=== PATIENT | female | born 1995 | race Two or more races ===

== ENCOUNTER → 2016-12-08 | Outpatient (REF) | payer OTHER ==
[2016-12-08 18:09] LABS: ALBUMIN/GLOBULIN RATIO 1.14 (1.00-1.93); ALKALINE PHOSPHATASE 85 U/L (45-117); ALT/SGPT 46 U/L (12-78); ANION GAP 8 MEQ/L (8-16); AST/SGOT 25 U/L (15-37); BILIRUBIN,TOTAL 0.3 MG/DL (0.2-1.0); BLOOD UREA NITROGEN 10 MG/DL (7-18); CALCIUM LEVEL 9.1 MG/DL (8.5-10.1); CARBON DIOXIDE LEVEL 28 MEQ/L (21-32); CHLORIDE LEVEL 105 MEQ/L (98-107); CHOLESTEROL LEVEL 197 MG/DL (<200); CREATININE FOR GFR 0.75 MG/DL (0.55-1.02); FREE T4 1.06 NG/DL (0.76-1.46); GLOMERULAR FILTRATION RATE > 60.0 (>60); GLUCOSE, FASTING 83 MG/DL (70-105); POTASSIUM SERUM 4.1 MEQ/L (3.5-5.1); SODIUM LEVEL 141 MEQ/L (136-145); TOTAL PROTEIN 7.5 GM/DL (6.4-8.2); TRIGLYCERIDES LEVEL 186 MG/DL (<150)
[2016-12-08 18:23] LABS: MEAN CORPUSCULAR HEMOGLOBIN 30.3 pg (27.0-33.0); MEAN CORPUSCULAR HGB CONC 33.9 g/dl (32.0-36.5); MEAN CORPUSCULAR VOLUME 89.2 fl (80.0-96.0); RED CELL DISTRIBUTION WIDTH 11.9 % (11.5-14.5); WHITE BLOOD COUNT 5.4 K/mm3 (4.0-10.0)
== END ==
LOC: M SFHCLERA 14:47
PROVIDERS: ATTEND Family Medicine
DX: N92.6 Irregular menstruation, unspecified (principal); N83.201 Unspecified ovarian cyst, right side

== ENCOUNTER → 2016-12-13 | Outpatient (CLI) | payer OTHER ==
--- NOTE | 2016-12-13 16:09 | REP ---
PELVIC ULTRASOUND: Real-time sonographic evaluation of the pelvis was performed utilizing transabdominal and endovaginal technique. The bladder measures 6.9 x 4.4 x 7.4 cm. The uterus measures 7.6 x 4.1 x 4.6 cm. Endometrial thickness is 9 mm. There is no endometrial fluid collection. Right ovary measures 4.8 x 2.3 x 2.8 cm and left ovary 3.9 x 1.9 x 2.1 cm. Multiple subcentimeter follicles are seen in each ovary. There is no other evidence of adnexal mass or free fluid. There is blood flow each in each ovary with duplex Doppler evaluation, with no torsion. IMPRESSION: Multiple subcentimeter follicles in each ovary. No adnexal mass. No free fluid. Signed by Shawn Lemus MD 12/13/2016 04:20 P
== END ==
LOC: M LRY 12:59
PROVIDERS: ATTEND Family Medicine
DX: N83.01 Follicular cyst of right ovary (principal); N83.02 Follicular cyst of left ovary

== ENCOUNTER 2017-02-09 12:47 | Emergency (ER) | payer OTHER ==
[~2017-02-09] VITALS: Ht 152.4 cm; Wt 66.2 kg
[2017-02-09] MEDS ORDERED: MONOTAB PO (12:52)
[2017-02-09] MEDS ORDERED: PANTOPRAZOLE 40MG INJ (PROTONIX) (C9113) IV ONE (13:15)
[2017-02-09 13:34] LABS: BASO % 0.2 % (0.0-1.0); EOS # 0.1 K/mm3 (0.0-0.50); EOS % 1.3 % (0.0-3.0); LARGE UNSTAINED CELL # 0.1 K/mm3 (0.0-0.4); LYMPH # 1.9 K/mm3 (1.5-6.5); LYMPH % 23.7 % (24.0-44.0); MEAN CORPUSCULAR HEMOGLOBIN 30.9 pg (27.0-33.0); MEAN CORPUSCULAR HGB CONC 34.4 g/dl (32.0-36.5); MEAN CORPUSCULAR VOLUME 89.8 fl (80.0-96.0); MONO # 0.4 K/mm3 (0.0-0.8); MONO % 5.5 % (0.0-5.0); NEUTROPHILS # 5.3 K/mm3 (1.8-7.7); NEUTROPHILS % 68.2 % (36.0-66.0); PLATELET COUNT, AUTOMATED 250 k/mm3 (150-450); WHITE BLOOD COUNT 7.8 K/mm3 (4.0-10.0)
[2017-02-09 13:40] LABS: CONTROL LINE UCG INT CTR LINE PRESENT
[2017-02-09] MEDS ORDERED: GASTROGRAFIN SOLUTION 30ML (Q9963) PO ONE ×2 (13:45)
[2017-02-09 13:54] LABS: ALBUMIN 3.7 GM/DL (3.2-5.2); ALBUMIN/GLOBULIN RATIO 0.95 (1.00-1.93); ALKALINE PHOSPHATASE 61 U/L (45-117); ALT/SGPT 23 U/L (12-78); ANION GAP 7 MEQ/L (8-16); AST/SGOT 15 U/L (15-37); BILIRUBIN,DIRECT < 0.1 MG/DL (0.0-0.2); BILIRUBIN,TOTAL 0.3 MG/DL (0.2-1.0); BLOOD UREA NITROGEN 6 MG/DL (7-18); CARBON DIOXIDE LEVEL 27 MEQ/L (21-32); CHLORIDE LEVEL 107 MEQ/L (98-107); CREATININE FOR GFR 0.74 MG/DL (0.55-1.02); GLOMERULAR FILTRATION RATE > 60.0 (>60); GLUCOSE, FASTING 86 MG/DL (70-105); POTASSIUM SERUM 3.8 MEQ/L (3.5-5.1); SODIUM LEVEL 141 MEQ/L (136-145); TOTAL PROTEIN 7.6 GM/DL (6.4-8.2)
[2017-02-09] MEDS ORDERED: BACTRIM 160MG/800MG DS TAB PO ONE (14:15)
[2017-02-09] MEDS ORDERED: BACT800T5 PO (14:46)
[2017-02-09] MEDS ORDERED: PROTPAK PO (14:47)
[2017-02-09] MEDS ORDERED: ISOVUE-370 76% 100ML VIAL (Q9967) As Ordered ONE (15:02)
--- NOTE | 2017-02-09 16:09 | REP ---
CT ABDOMEN AND PELVIS WITH IV CONTRAST: TECHNIQUE: Axial contrast enhanced images from the lung bases to the pubic symphysis using 100 mL Isovue 370 intravenous contrast material with multiplanar reformations. Visualized lung bases are clear. The liver demonstrates a tiny subcentimeter cyst in the right lobe. There is a small hiatal hernia. Spleen, adrenals, pancreas and kidneys are normal. There is no hydronephrosis. There is no abdominal aortic aneurysm. There is no adenopathy, free air or free fluid. The appendix is normal. There is no bowel wall thickening. No pelvic mass is seen. The urinary bladder appears unremarkable. IMPRESSION: No evidence of appendicitis. Small hiatal hernia. No free air or free fluid. Signed by Shawn Lemus MD 02/09/2017 04:49 P
[2017-02-09 16:10] VITALS: BP 111/67
== END 2017-02-09 16:11 | disposition home or self-care (01) ==
LOC: M ED 14:05
DX: K44.9 Diaphragmatic hernia without obstruction or gangrene (principal); K21.9 Gastro-esophageal reflux disease without esophagitis; N39.0 Urinary tract infection, site not specified; Z79.3 Long term (current) use of hormonal contraceptives
CPT/HCPCS: 36415; 74177; 80048; 80076; 81001; 83690; 84703; 85025; 87086; 96374; 99283; C9113; Q9963; Q9967

== ENCOUNTER → 2017-02-21 | Outpatient (REF) | payer OTHER ==
[~2017-02-21] MED LIST: BACT800T5 PO; MONOTAB PO; PROTPAK PO
== END ==
LOC: M SFHCLERA 14:10
PROVIDERS: ATTEND Family Medicine
DX: R30.0 Dysuria (principal)

== ENCOUNTER → 2017-04-26 | Outpatient (CLI) | payer OTHER ==
--- NOTE | 2017-04-26 20:12 | REP ---
Right shoulder series: Three views: History: Acute pain right shoulder. Findings: The right glenohumeral and acromioclavicular joints are normally aligned. No fracture or subluxation is seen. Periarticular soft tissues are unremarkable. No right rib or pulmonary abnormality is seen. Impression: Negative right shoulder views. Signed by Felipe Rai MD 04/27/2017 07:53 A
== END ==
LOC: M LRY 18:26
PROVIDERS: ATTEND Nurse Practitioner Family
DX: M25.511 Pain in right shoulder (principal)

== ENCOUNTER → 2017-08-24 | Outpatient (REF) | payer OTHER ==
[~2017-08-24] MED LIST changes: +FLON1SPR; +GUAI100S7 PO; +MACR100C43 PO
== END ==
LOC: M SFHCLERA 13:01
PROVIDERS: ATTEND Physician Assistant
DX: J02.9 Acute pharyngitis, unspecified (principal); R50.9 Fever, unspecified

== ENCOUNTER 2017-08-30 06:11 | Emergency (ER) | payer OTHER ==
[~2017-08-30] VITALS: Ht 149.9 cm; Wt 59.1 kg
[~2017-08-30 06:11] MED LIST changes: -FLON1SPR; -GUAI100S7 PO; -MACR100C43 PO
[2017-08-30] MEDS ORDERED: guaiFENesin SYRUP 200 MG/10 ML UDC PO ONE (06:45)
[2017-08-30 07:07] LABS: BASO % 0.3 % (0.0-1.0); EOS # 0.2 10^3/uL (0.0-0.50); IMMATURE GRANULOCYTE % 0.2 % (0-0); LYMPH # 2.1 10^3/uL (1.5-6.5); LYMPH % 24.1 % (24.0-44.0); MEAN CORPUSCULAR HEMOGLOBIN 29.9 pg (27.0-33.0); MEAN CORPUSCULAR HGB CONC 34.2 g/dl (32.0-36.5); MEAN CORPUSCULAR VOLUME 87.3 fl (80.0-96.0); MONO # 0.9 10^3/uL (0.0-0.8); MONO % 10.4 % (0.0-5.0); NEUTROPHILS # 5.6 10^3/uL (1.8-7.7); PLATELET COUNT, AUTOMATED 271 10^3/uL (150-450); RED CELL DISTRIBUTION WIDTH 11.9 % (11.5-14.5); WHITE BLOOD COUNT 8.9 10^3/uL (4.0-10.0)
[2017-08-30 07:37] LABS: ANION GAP 8 MEQ/L (8-16); BLOOD UREA NITROGEN 8 MG/DL (7-18); CALCIUM LEVEL 8.9 MG/DL (8.5-10.1); CARBON DIOXIDE LEVEL 24 MEQ/L (21-32); CHLORIDE LEVEL 106 MEQ/L (98-107); CREATININE FOR GFR 0.51 MG/DL (0.55-1.02); GLOMERULAR FILTRATION RATE > 60.0 (>60); GLUCOSE, FASTING 82 MG/DL (70-105); HCG, SERUM QUANTITATIVE 18488 MIU/ML; SODIUM LEVEL 138 MEQ/L (136-145)
--- NOTE | 2017-08-30 08:37 | REP ---
Clinical: Vaginal bleeding for dating and viability. Technique: First trimester transabdominal and transvaginal ultrasound examination with color Doppler evaluation. Findings: Anteverted uterus measures 8.6 x 5.7 x 6.7 cm. Endometrial complex demonstrates decidual reaction 229.5 mm and includes an irregular gestational sac with yolk sac but no pole. Mean sac diameter of 11.3 mm corresponds to 5 weeks 6 days gestational age. Maternal ovaries are normal in appearance and vascularity without evidence for torsion. Right ovary measures 4.8 x 2.8 x 3.1 cm and includes 2.2 cm corpus luteal cyst; RI 0.58. Left ovary measures 4.0 x 2.0 x 2.3 cm; RI 0.71. Small amount of pelvic free fluid is nonspecific. Impression: Gestational sac with yolk sac but no pole. Differential diagnosis includes normal early and early spontaneous . Less likely, ectopic cannot be excluded. Correlation with serial HCG levels and repeat ultrasound as necessary. Signed by Lauro Us MD 08/30/2017 08:29 A
[2017-08-30] MEDS ORDERED: FLON1SPR (08:56)
[2017-08-30] MEDS ORDERED: GUAI100S7 PO (08:56)
[2017-08-30] MEDS ORDERED: MACR100C43 PO (08:56)
[2017-08-30 09:08] VITALS: BP 131/78
== END 2017-08-30 09:10 | disposition home or self-care (01) ==
LOC: M ED 06:11
DX: O23.41 Unspecified infection of urinary tract in pregnancy, first trimester (principal); O99.511 Diseases of the respiratory system complicating pregnancy, first trimester; R05 Cough; Z3A.01 Less than 8 weeks gestation of pregnancy; Z87.891 Personal history of nicotine dependence

== ENCOUNTER 2017-09-02 22:36 | Emergency (ER) | payer OTHER ==
[~2017-09-02] VITALS: Ht 149.9 cm; Wt 59.1 kg
[~2017-09-02 22:36] MED LIST changes: +FLON1SPR; +GUAI100S7 PO; +MACR100C43 PO
[2017-09-02] MEDS ORDERED: diphenhydrAMINE INJ 50MG/ML VIAL (J1200) IV ONE (23:45)
[2017-09-02] MEDS ORDERED: NS 1,000 ML IV ONE (23:45)
[2017-09-02] MEDS ORDERED: METOCLOPRAMIDE INJ 10MG/2ML VIAL (J2765) IV ONE (23:45)
[2017-09-02 23:57] LABS: BASO % 0.3 % (0.0-1.0); EOS # 0.1 10^3/uL (0.0-0.50); EOS % 1.2 % (0.0-3.0); IMMATURE GRANULOCYTE % 0.3 % (0-0); LYMPH # 2.9 10^3/uL (1.5-6.5); LYMPH % 24.8 % (24.0-44.0); MEAN CORPUSCULAR HEMOGLOBIN 30.4 pg (27.0-33.0); MEAN CORPUSCULAR HGB CONC 34.2 g/dl (32.0-36.5); MEAN CORPUSCULAR VOLUME 88.9 fl (80.0-96.0); MONO # 1.1 10^3/uL (0.0-0.8); MONO % 9.3 % (0.0-5.0); NEUTROPHILS # 7.6 10^3/uL (1.8-7.7); NEUTROPHILS % 64.1 % (36.0-66.0); PLATELET COUNT, AUTOMATED 286 10^3/uL (150-450); RED CELL DISTRIBUTION WIDTH 11.9 % (11.5-14.5); WHITE BLOOD COUNT 11.9 10^3/uL (4.0-10.0)
[2017-09-03 00:33] LABS: ALBUMIN 3.7 GM/DL (3.2-5.2); ALBUMIN/GLOBULIN RATIO 1.06 (1.00-1.93); ALKALINE PHOSPHATASE 72 U/L (45-117); ALT/SGPT 20 U/L (12-78); ANION GAP 7 MEQ/L (8-16); AST/SGOT 12 U/L (7-37); BILIRUBIN,TOTAL 0.3 MG/DL (0.2-1.0); BLOOD UREA NITROGEN 5 MG/DL (7-18); CALCIUM LEVEL 8.8 MG/DL (8.5-10.1); CARBON DIOXIDE LEVEL 27 MEQ/L (21-32); CHLORIDE LEVEL 103 MEQ/L (98-107); CREATININE FOR GFR 0.54 MG/DL (0.55-1.02); GLOMERULAR FILTRATION RATE > 60.0 (>60); GLUCOSE, FASTING 81 MG/DL (70-105); HCG, SERUM QUANTITATIVE 45755 MIU/ML; POTASSIUM SERUM 3.3 MEQ/L (3.5-5.1); SODIUM LEVEL 137 MEQ/L (136-145); TOTAL PROTEIN 7.2 GM/DL (6.4-8.2)
[2017-09-03] MEDS ORDERED: KEFL500C17 PO (01:41)
--- NOTE | 2017-09-03 02:00 | REPUSA ---
CLINICAL HISTORY: determination. TECHNIQUE: Real-time ultrasound of the pelvis wasperformed. FINDINGS: The uterus measures 9.1x5.3x6.9 cm. The pole measures 2.9 mm. This corresponds to an estimated gestation age of 5 weeks and 6 days. No cardiac activity is noted. Right ovarian echogenic hemorrhagic cyst measuring 2.1 cm. Unremarkable left ovary. No free fluid in the pelvic cul-de-sac. IMPRESSION: Single intrauterine pole. No cardiac activity is identified. Right ovarian hemorrhagic cyst.
[2017-09-03 02:14] VITALS: BP 98/51
== END 2017-09-03 02:15 | disposition home or self-care (01) ==
LOC: M ED 22:36
DX: O23.41 Unspecified infection of urinary tract in pregnancy, first trimester (principal); Z87.891 Personal history of nicotine dependence; O34.81 Maternal care for other abnormalities of pelvic organs, first trimester; Z3A.01 Less than 8 weeks gestation of pregnancy
CPT/HCPCS: 76801; 76817; 80053; 81001; 84702; 85025; 93976; 96361; 96374; 96375; 99284; J1200; J2765

== ENCOUNTER → 2017-09-06 | Outpatient (REF) | payer OTHER ==
[~2017-09-06] MED LIST changes: +KEFL500C17 PO
== END ==
LOC: M SFHCLERA 14:31
PROVIDERS: ATTEND Family Medicine
DX: O03.9 Complete or unspecified spontaneous abortion without complication (principal)

== ENCOUNTER 2017-09-08 15:53 | Emergency (ER) | payer OTHER ==
[~2017-09-08] VITALS: Ht 149.9 cm; Wt 60.0 kg
[2017-09-08 17:18] LABS: MEAN CORPUSCULAR HEMOGLOBIN 30.6 pg (27.0-33.0); MEAN CORPUSCULAR HGB CONC 33.6 g/dl (32.0-36.5); PLATELET COUNT, AUTOMATED 284 10^3/uL (150-450); RED CELL DISTRIBUTION WIDTH 12.2 % (11.5-14.5); WHITE BLOOD COUNT 10.7 10^3/uL (4.0-10.0)
[2017-09-08] MEDS ORDERED: NS 1,000 ML IV ONE (17:45)
[2017-09-08] MEDS ORDERED: MORPHINE 4 MG/ML 1ML SYRINGE IV ONE ×2 (17:45→19:30)
[2017-09-08] MEDS ORDERED: ONDANSETRON 4MG/2ML VIAL (J2405) IV ONE (19:45)
[2017-09-08] MEDS ORDERED: OXYCODONE/APAP 5MG/325MG(BULK FOR ED) 1 TABLET PO ONE (20:15)
[2017-09-08 20:23] VITALS: BP 116/67
--- NOTE | 2017-09-08 20:40 | REPUSA ---
Clinical history: bleeding. Comparison: 09/03/2017. Findings: Real-time transabdominal and transvaginal ultrasound images of the pelvis were obtained. An anteverted uterus is noted, measuring 9.3 x 5.1 x 5.4 cm. The uterus demonstrates normal echotexture and echogenicity. The endometrial stripe measures 17 mm . The endometrium is echogenic and thickened . No discrete intrauterine gestation was identified. The right ovary measures 4.4 x 2.2 x 2.6 cm. Th ere is a complex right ovarian cyst measuring 1.8 cm in diameter. The left ovary measures 3.2 x 2.1 x 2.8 cm. No adnexal masses are seen. Color Doppler flow is seen within both ovaries. There is no evid ence of free fluid. Impression: 1. Echogenic, thickened endometrial stripe. No evidence of an intrauterine gestation. Differential di agnosis could include hemorrhage or endometrial hyperplasia. Early cannot be excluded. 2. Complex, likely hemorrhagic right ovarian cyst. 3. Differential diagnosis includes early , missed , or ectopic . Follow-up with serial serum beta hCG levels is recommended for further evaluation.
== END 2017-09-08 20:41 | disposition home or self-care (01) ==
LOC: M ED 15:53
DX: O03.9 Complete or unspecified spontaneous abortion without complication (principal); Z87.59 Personal history of other complications of pregnancy, childbirth and the puerperium
CPT/HCPCS: 76801; 76817; 84702; 85027; 86850; 86900; 86901; 96361; 96374; 96375; 96376; 99284; J2405

== ENCOUNTER → 2017-09-28 | Outpatient (REF) | payer OTHER | LOC: M SFHCLERA 11:34 | PROVIDERS: ATTEND Family Medicine | DX: Z32.01 Encounter for pregnancy test, result positive (principal) ==

== ENCOUNTER → 2017-09-30 | Outpatient (REF) | payer OTHER | LOC: M SFHCLERA 08:19 | PROVIDERS: ATTEND Family Medicine | DX: Z32.01 Encounter for pregnancy test, result positive (principal) ==

== ENCOUNTER → 2017-11-01 | Outpatient (REF) | payer OTHER ==
[2017-11-01 17:15] LABS: HCG, SERUM QUANTITATIVE 17 MIU/ML
== END ==
LOC: M SFHCLERA 13:11
DX: E34.9 Endocrine disorder, unspecified (principal)

== ENCOUNTER → 2017-11-22 | Outpatient (REF) | payer OTHER | LOC: M SFHCLERA 13:23 | DX: E34.9 Endocrine disorder, unspecified (principal); Z53.9 Procedure and treatment not carried out, unspecified reason ==

== ENCOUNTER → 2017-12-07 | Outpatient (CLI) | payer OTHER ==
[2017-12-07 14:01] LABS: BASO % 0.5 % (0.0-1.0); EOS # 0.2 10^3/uL (0.0-0.50); EOS % 1.9 % (0.0-3.0); HEMATOCRIT 40.9 % (36.0-47.0); HEMOGLOBIN 13.5 g/dl (12.0-16.0); IMMATURE GRANULOCYTE % 0.2 % (0-3.0); LYMPH # 2.2 10^3/uL (1.5-6.5); LYMPH % 26.1 % (24.0-44.0); MEAN CORPUSCULAR HEMOGLOBIN 30.1 pg (27.0-33.0); MEAN CORPUSCULAR VOLUME 91.1 fl (80.0-96.0); MONO # 0.9 10^3/uL (0.0-0.8); MONO % 10.3 % (0.0-5.0); PLATELET COUNT, AUTOMATED 272 10^3/uL (150-450); RED BLOOD COUNT 4.49 10^6/uL (4.00-5.40); RED CELL DISTRIBUTION WIDTH 12.4 % (11.5-14.5); WHITE BLOOD COUNT 8.3 10^3/uL (4.0-10.0)
[2017-12-07 14:34] LABS: FREE THYROXINE INDEX 2.7 % (1.3-4.8); HCG, SERUM QUANTITATIVE 5 MIU/ML; T UPTAKE 30 % (30-39)
== END ==
LOC: M SMT 08:39
DX: N92.4 Excessive bleeding in the premenopausal period (principal)

== ENCOUNTER 2017-12-12 14:55 | Emergency (ER) | payer OTHER ==
[2017-12-12 16:46] LABS: KETONE, URINE AUTO RFX NEGATIVE (NEGATIVE); MUCUS, URINE RFX SMALL (NEGATIVE); NITRITE, URINE AUTO RFX NEGATIVE (NEGATIVE); RBC, URINE AUTO RFX 3 /HPF (0-3); SPECIFIC GRAVITY UR AUTO RFX 1.024 (1.002-1.035); SQUAM EPITHELIAL CELL UR AURFX 1 /HPF (0-6); WBC, URINE AUTO RFX 9 /HPF (0-3)
[2017-12-12 16:47] LABS: LEUKOCYTE ESTERASE UR AUTO RFX 3+ (NEGATIVE)
[2017-12-12] MEDS: ONDANSETRON 4 MG ORAL DISINTEGRATING TAB (S0181) PO (16:55)
== END 2017-12-12 18:17 | disposition home or self-care (01) ==
LOC: M ED 14:55
DX: N39.0 Urinary tract infection, site not specified (principal); R50.9 Fever, unspecified; R11.0 Nausea; N94.6 Dysmenorrhea, unspecified; Z79.899 Other long term (current) drug therapy
CPT/HCPCS: 76856

== ENCOUNTER 2017-12-31 03:31 | Emergency (ER) | payer OTHER | END 2017-12-31 05:28 | disposition left against medical advice (07) | LOC: M ED 03:31 | DX: Z53.29 Procedure and treatment not carried out because of patient's decision for other reasons (principal) ==

== ENCOUNTER 2018-01-01 09:43 | Emergency (ER) | payer OTHER ==
[2018-01-01] MEDS: GI COCKTAIL 50ML BTL(HYOSCYAMINE/MAALOX/LIDOCAINE VISCOUS)(1:3:1) PO (10:14)
== END 2018-01-01 10:19 | disposition home or self-care (01) ==
LOC: M ED 09:43
DX: R10.13 Epigastric pain (principal); K21.9 Gastro-esophageal reflux disease without esophagitis
CPT/HCPCS: 81025

== ENCOUNTER → 2018-02-09 | Outpatient (REF) | payer OTHER ==
[2018-02-09 18:28] LABS: CONTROL LINE HCG INT CTR LINE PRESENT; HCG, SERUM QUALITATIVE NEGATIVE (NEGATIVE)
== END ==
LOC: M SFHCLERA 14:45
DX: N91.1 Secondary amenorrhea (principal); R11.2 Nausea with vomiting, unspecified

== ENCOUNTER → 2018-03-28 | Outpatient (CLI) | payer OTHER ==
[2018-03-28 12:29] LABS: ALBUMIN 4.9 GM/DL (3.2-5.2); ALKALINE PHOSPHATASE 85 U/L (45-117); ALT/SGPT 39 U/L (12-78); AST/SGOT 18 U/L (7-37); BILIRUBIN,DIRECT 0.1 MG/DL (0.0-0.2); BILIRUBIN,TOTAL 0.4 MG/DL (0.2-1.0); C REACTIVE PROTEIN QUANTITATIV < 0.30 MG/DL (0.00-0.30); FERRITIN 5 NG/ML (8-252); IRON (FE) 65 UG/DL (50-170); PERCENT SATURATION 16.3 % (13.2-45.0); TOTAL IRON BINDING CAPACITY 400 UG/DL (250-450); TOTAL PROTEIN 8.4 GM/DL (6.4-8.2)
[2018-03-29 10:58] LABS: HEPATITIS B SURFACE ANTIBODY NEGATIVE (POSITIVE)
[2018-03-30 00:07] LABS: ANTI-MITOCHONDRIAL ANTIBODY 4.2 Units (0.0-20.0); LIVER-KIDNEY MICROSOMAL ABY 0.6 Units (0.0-20.0); TISSUE TRANSGLUTAMINASE IgA <2 U/mL (0-3)
[2018-03-30 08:22] LABS: ANTINUCLEAR ANTIBODIES DIRECT Negative (Negative); CERULOPLASMIN 21.6 mg/dL (19.0-39.0); HEPATITIS A IgG TOTAL Positive (Negative); IGASUB3 44.3 mg/dL (13.4-97.9); IgA SERUM (part of Subclasses) 153 mg/dL (87-352)
[2018-03-30 08:22] LABS: ANTI-SMOOTH MUSCLE ANTIBODY 5 Units (0-19)
== END ==
LOC: M LAB 10:15
DX: R10.13 Epigastric pain (principal)
CPT/HCPCS: 83550

== ENCOUNTER 2018-04-03 12:31 | Day surgery (SDC) | payer OTHER ==
[2018-04-03] MEDS: NS 1,000 ML IV (13:06)
[2018-04-03] MEDS ORDERED: LIDOCAINE 2% INJ 100 MG/5 ML SDV (FOR ANES.) As Ordered (13:24)
[2018-04-03] MEDS ORDERED: PROPOFOL 200 MG/20 ML VIAL As Ordered ×2 (13:24→13:31)
== END 2018-04-03 14:16 | disposition home or self-care (01) ==
LOC: M OPP 12:31
DX: K21.9 Gastro-esophageal reflux disease without esophagitis (principal); K29.70 Gastritis, unspecified, without bleeding; K44.9 Diaphragmatic hernia without obstruction or gangrene; G43.909 Migraine, unspecified, not intractable, without status migrainosus; E28.2 Polycystic ovarian syndrome; Z79.899 Other long term (current) drug therapy
CPT/HCPCS: 43239

== ENCOUNTER 2018-05-05 06:34 | Emergency (ER) | payer OTHER ==
[2018-05-05] MEDS: KETOROLAC 30 MG/ML VIAL (J1885) IV (07:18)
[2018-05-05] MEDS: METOCLOPRAMIDE INJ 10MG/2ML VIAL (J2765) IV (07:19)
[2018-05-05 07:20] LABS: BASO % 0.2 % (0.0-1.0); EOS # 0.1 10^3/uL (0.0-0.50); EOS % 0.4 % (0.0-3.0); HEMATOCRIT 37.7 % (36.0-47.0); HEMOGLOBIN 12.4 g/dl (12.0-15.5); IMMATURE GRANULOCYTE % 0.4 % (0-3.0); LYMPH # 2.1 10^3/uL (1.5-6.5); LYMPH % 13.9 % (24.0-44.0); MEAN CORPUSCULAR HEMOGLOBIN 30.5 pg (27.0-33.0); MEAN CORPUSCULAR HGB CONC 32.9 g/dl (32.0-36.5); MEAN CORPUSCULAR VOLUME 92.6 fl (80.0-96.0); MONO # 1.1 10^3/uL (0.0-0.8); MONO % 7.3 % (0.0-5.0); NEUTROPHILS # 11.5 10^3/uL (1.8-7.7); NEUTROPHILS % 77.8 % (36.0-66.0); PLATELET COUNT, AUTOMATED 241 10^3/uL (150-450); RED BLOOD COUNT 4.07 10^6/uL (4.00-5.40); RED CELL DISTRIBUTION WIDTH 12.2 % (11.5-14.5); WHITE BLOOD COUNT 14.7 10^3/uL (4.0-10.0)
[2018-05-05] MEDS: NS 1,000 ML IV ×2 (07:27→09:30)
[2018-05-05 07:47] LABS: ALBUMIN 3.8 GM/DL (3.2-5.2); ALBUMIN/GLOBULIN RATIO 1.12 (1.00-1.93); ALKALINE PHOSPHATASE 59 U/L (45-117); ALT/SGPT 35 U/L (12-78); AMYLASE 49 U/L (25-115); ANION GAP 6 MEQ/L (8-16); AST/SGOT 25 U/L (7-37); BILIRUBIN,DIRECT < 0.1 MG/DL (0.0-0.2); BILIRUBIN,TOTAL 0.2 MG/DL (0.2-1.0); BLOOD UREA NITROGEN 10 MG/DL (7-18); C REACTIVE PROTEIN QUANTITATIV < 0.30 MG/DL (0.00-0.30); CALCIUM LEVEL 8.4 MG/DL (8.5-10.1); CARBON DIOXIDE LEVEL 27 MEQ/L (21-32); CHLORIDE LEVEL 110 MEQ/L (98-107); GLOMERULAR FILTRATION RATE > 60.0 (>60); GLUCOSE, FASTING 121 MG/DL (70-100); LIPASE 219 U/L (73-393); POTASSIUM SERUM 4.1 MEQ/L (3.5-5.1); SODIUM LEVEL 143 MEQ/L (136-145); TOTAL PROTEIN 7.2 GM/DL (6.4-8.2)
[2018-05-05 08:07] LABS: HCG, SERUM QUANTITATIVE < 1.0 MIU/ML
[2018-05-05 08:57] LABS: KETONE, URINE AUTO RFX TRACE mg/dL (NEGATIVE); LEUKOCYTE ESTERASE UR AUTO RFX 1+ (NEGATIVE); MUCUS, URINE RFX LARGE (NEGATIVE); NITRITE, URINE AUTO RFX NEGATIVE (NEGATIVE); RBC, URINE AUTO RFX TNTC /HPF (0-3); SPECIFIC GRAVITY UR AUTO RFX 1.029 (1.002-1.035); SQUAM EPITHELIAL CELL UR AURFX 6 /HPF (0-6); WBC, URINE AUTO RFX 70 /HPF (0-3)
== END 2018-05-05 10:33 | disposition home or self-care (01) ==
LOC: M ED 06:34
DX: N39.0 Urinary tract infection, site not specified (principal); K21.9 Gastro-esophageal reflux disease without esophagitis; G43.909 Migraine, unspecified, not intractable, without status migrainosus; Z87.440 Personal history of urinary (tract) infections; Z87.442 Personal history of urinary calculi; Z79.899 Other long term (current) drug therapy; Z87.891 Personal history of nicotine dependence
CPT/HCPCS: J1885

== ENCOUNTER 2018-07-07 15:55 | Emergency (ER) | payer OTHER ==
[2018-07-07 16:37] LABS: BASO % 0.3 % (0.0-1.0); EOS # 0.1 10^3/uL (0.0-0.50); EOS % 0.5 % (0.0-3.0); HEMATOCRIT 36.8 % (36.0-47.0); IMMATURE GRANULOCYTE % 0.1 % (0-3.0); LYMPH # 1.6 10^3/uL (1.5-6.5); LYMPH % 17.4 % (24.0-44.0); MEAN CORPUSCULAR HEMOGLOBIN 29.4 pg (27.0-33.0); MEAN CORPUSCULAR HGB CONC 32.6 g/dl (32.0-36.5); MEAN CORPUSCULAR VOLUME 90.2 fl (80.0-96.0); MONO # 0.8 10^3/uL (0.0-0.8); MONO % 8.8 % (0.0-5.0); NEUTROPHILS # 6.8 10^3/uL (1.8-7.7); NEUTROPHILS % 72.9 % (36.0-66.0); PLATELET COUNT, AUTOMATED 275 10^3/uL (150-450); RED BLOOD COUNT 4.08 10^6/uL (4.00-5.40); RED CELL DISTRIBUTION WIDTH 12.5 % (11.5-14.5); WHITE BLOOD COUNT 9.4 10^3/uL (4.0-10.0)
[2018-07-07 16:45] LABS: KETONE, URINE AUTO RFX TRACE mg/dL (NEGATIVE); MUCUS, URINE RFX SMALL (NEGATIVE); NITRITE, URINE AUTO RFX NEGATIVE (NEGATIVE); RBC, URINE AUTO RFX 3 /HPF (0-3); SPECIFIC GRAVITY UR AUTO RFX 1.024 (1.002-1.035); SQUAM EPITHELIAL CELL UR AURFX 7 /HPF (0-6); WBC, URINE AUTO RFX 5 /HPF (0-3)
[2018-07-07 16:46] LABS: LEUKOCYTE ESTERASE UR AUTO RFX 1+ (NEGATIVE)
[2018-07-07 17:00] LABS: CONTROL LINE HCG INT CTR LINE PRESENT; HCG, SERUM QUALITATIVE NEGATIVE (NEGATIVE)
[2018-07-07 17:09] LABS: ALBUMIN 4.1 GM/DL (3.2-5.2); ALBUMIN/GLOBULIN RATIO 1.28 (1.00-1.93); ALKALINE PHOSPHATASE 64 U/L (45-117); ALT/SGPT 22 U/L (12-78); ANION GAP 8 MEQ/L (8-16); AST/SGOT 13 U/L (7-37); BILIRUBIN,DIRECT 0.1 MG/DL (0.0-0.2); BILIRUBIN,TOTAL 0.3 MG/DL (0.2-1.0); BLOOD UREA NITROGEN 8 MG/DL (7-18); CALCIUM LEVEL 9.4 MG/DL (8.5-10.1); CARBON DIOXIDE LEVEL 28 MEQ/L (21-32); CHLORIDE LEVEL 108 MEQ/L (98-107); GLOMERULAR FILTRATION RATE > 60.0 (>60); GLUCOSE, FASTING 118 MG/DL (70-100); LIPASE 132 U/L (73-393); POTASSIUM SERUM 3.9 MEQ/L (3.5-5.1); SODIUM LEVEL 144 MEQ/L (136-145); TOTAL PROTEIN 7.3 GM/DL (6.4-8.2)
== END 2018-07-07 18:16 | disposition left against medical advice (07) ==
LOC: M ED 18:16
DX: Z53.21 Procedure and treatment not carried out due to patient leaving prior to being seen by health care provider (principal)

== ENCOUNTER 2018-07-07 20:19 | Emergency (ER) | payer OTHER ==
[2018-07-07] MEDS: GI COCKTAIL 50ML BTL(HYOSCYAMINE/MAALOX/LIDOCAINE VISCOUS)(1:3:1) PO (21:51)
[2018-07-07] MEDS: ONDANSETRON 4 MG ORAL DISINTEGRATING TAB (Q0162 PER 1MG) PO (21:52)
== END 2018-07-07 22:19 | disposition home or self-care (01) ==
LOC: M ED 20:19
DX: N30.00 Acute cystitis without hematuria (principal); K21.0 Gastro-esophageal reflux disease with esophagitis; Z87.19 Personal history of other diseases of the digestive system
CPT/HCPCS: Q0162

== ENCOUNTER → 2018-07-12 | Outpatient (REF) | payer OTHER | LOC: M SFHCLERA 11:13 | DX: R82.90 Unspecified abnormal findings in urine (principal); N92.6 Irregular menstruation, unspecified ==

== ENCOUNTER 2018-08-04 07:37 | Day surgery (SDC) | payer OTHER ==
[2018-08-04 08:21] LABS: CONTROL LINE UCG INT CTR LINE PRESENT; URINE PREG TEST NEGATIVE (NEGATIVE)
[2018-08-04] MEDS ORDERED: BUPIVACAINE HCL 0.25% 30 ML VIAL As Ordered (08:29)
[2018-08-04] MEDS: LR 1,000 ML IV (08:30)
[2018-08-04] MEDS ORDERED: ePHEDrine SULFATE 25 MG/5 ML(5MG/ML) SYRINGE As Ordered (10:05)
[2018-08-04] MEDS ORDERED: LIDOCAINE 2% INJ 100 MG/5 ML SDV (FOR ANES.) As Ordered (10:05)
[2018-08-04] MEDS ORDERED: NEOSTIGMINE 10 MG/10 ML VIAL (J2710) As Ordered (10:05)
[2018-08-04] MEDS ORDERED: fentaNYL 250 MCG/5 ML INJECTION (J3010) As Ordered (10:05)
[2018-08-04] MEDS ORDERED: ROCURONIUM BROMIDE 50 MG/5 ML VIAL As Ordered ×2 (10:05→10:18)
[2018-08-04] MEDS ORDERED: KETOROLAC 60 MG/2 ML VIAL (J1885) As Ordered (10:05)
[2018-08-04] MEDS ORDERED: ONDANSETRON 4MG/2ML VIAL (J2405) As Ordered (10:05)
[2018-08-04] MEDS ORDERED: PROPOFOL 200 MG/20 ML VIAL As Ordered ×2 (10:05→10:39)
[2018-08-04] MEDS ORDERED: MIDAZOLAM INJ 2 MG/2 ML VIAL (J2250) As Ordered (10:05)
[2018-08-04] MEDS ORDERED: dexameTHASONE 4 MG/ML 1ML VIAL (J1100) As Ordered (10:05)
[2018-08-04] MEDS ORDERED: GLYCOPYRROLATE INJ 0.2 MG/ML 2 ML VIAL As Ordered ×2 (10:06)
[2018-08-04] MEDS: PERCOCET 5MG/325MG TAB PO (11:26)
[2018-08-04] MEDS ORDERED: ONDANSETRON 4MG/2ML VIAL (J2405) IV (11:30)
[2018-08-04] MEDS ORDERED: LR 1,000 ML IV (11:30)
[2018-08-04] MEDS ORDERED: ACETAMINOPHEN TAB 650MG DOSE (2X325MG) PO (11:30)
[2018-08-04] MEDS ORDERED: MEPERIDINE INJ 25 MG/ML VIAL (J2175) IV (11:30)
[2018-08-04] MEDS ORDERED: NORCO, ANEXSIA 5/325MG TABLET (HYDROcodone/ACETAMINOPHEN) PO (11:30)
[2018-08-04] MEDS ORDERED: fentaNYL 100 MCG/2 ML INJECTION (J3010) IV (11:30)
[2018-08-04] MEDS ORDERED: METOCLOPRAMIDE INJ 10MG/2ML VIAL (J2765) IV (11:30)
[2018-08-04] MEDS ORDERED: IBUPROFEN 600 MG TAB PO (11:30)
== END 2018-08-06 12:10 | disposition home or self-care (01) ==
LOC: M SDC 07:37
DX: K81.1 Chronic cholecystitis (principal); E28.2 Polycystic ovarian syndrome; K44.9 Diaphragmatic hernia without obstruction or gangrene; K21.9 Gastro-esophageal reflux disease without esophagitis; G43.909 Migraine, unspecified, not intractable, without status migrainosus; N92.6 Irregular menstruation, unspecified; Z79.899 Other long term (current) drug therapy; Z87.891 Personal history of nicotine dependence
CPT/HCPCS: 47562

== ENCOUNTER 2019-02-20 08:46 | Emergency (ER) | payer OTHER ==
[~2019-02-20] VITALS: Ht 149.9 cm; Wt 55.5 kg
[~2019-02-20 08:46] MED LIST changes: +ACET500T15 PO; +CIPR-249 PO; +CIPR5SUS PO; +DILA2TAB6 PO; +GUAI100L6 PO; -GUAI100S7 PO; +HYDR-3715 PO; +IBUP-1114 PO; +IBUPOTC PO; +METR-265 PO; +OMEP40CA2 PO; +ONDA4TAB6 PO; +PANT40TA3 PO; +PREN1CHW6 PO; +PROT1TAB2 PO; +PROV5TAB2 PO; +PYRI1TAB5 PO; +SUCR1TAB56 PO; +ZANT300T9 PO; +ZOFR4TAB14 PO
[2019-02-20 09:53] LABS: BASO % 0.2 % (0.0-1.0); EOS % 0.1 % (0.0-3.0); HEMATOCRIT 39.6 % (36.0-47.0); HEMOGLOBIN 12.7 g/dl (12.0-15.5); LYMPH # 1.3 10^3/uL (1.5-6.5); LYMPH % 12.3 % (24.0-44.0); MEAN CORPUSCULAR HEMOGLOBIN 29.3 pg (27.0-33.0); MEAN CORPUSCULAR HGB CONC 32.1 g/dl (32.0-36.5); MEAN CORPUSCULAR VOLUME 91.2 fl (80.0-96.0); MONO # 0.6 10^3/uL (0.0-0.8); MONO % 5.5 % (0.0-5.0); NEUTROPHILS # 8.4 10^3/uL (1.8-7.7); NEUTROPHILS % 81.5 % (36.0-66.0); PLATELET COUNT, AUTOMATED 290 10^3/uL (150-450); RED BLOOD COUNT 4.34 10^6/uL (4.00-5.40); WHITE BLOOD COUNT 10.3 10^3/uL (4.0-10.0)
[2019-02-20] MEDS ORDERED: NS 1,000 ML IV ONE ×2 (10:00→10:30)
[2019-02-20 10:17] LABS: ALBUMIN 4.2 GM/DL (3.2-5.2); ALT/SGPT 20 U/L (12-78); BILIRUBIN,DIRECT < 0.1 MG/DL (0.0-0.2); BILIRUBIN,TOTAL 0.3 MG/DL (0.2-1.0); BLOOD UREA NITROGEN 9 MG/DL (7-18); CALCIUM LEVEL 8.8 MG/DL (8.5-10.1); CARBON DIOXIDE LEVEL 28 MEQ/L (21-32); CHLORIDE LEVEL 109 MEQ/L (98-107); GLOMERULAR FILTRATION RATE > 60.0 (>60); GLUCOSE, FASTING 161 MG/DL (70-100); LIPASE 112 U/L (73-393); POTASSIUM SERUM 4.2 MEQ/L (3.5-5.1); SODIUM LEVEL 142 MEQ/L (136-145); TOTAL PROTEIN 7.9 GM/DL (6.4-8.2)
[2019-02-20] MEDS ORDERED: KETOROLAC 30 MG/ML VIAL (J1885) IV ONE (10:30)
[2019-02-20] MEDS ORDERED: ONDANSETRON 4MG/2ML VIAL (J2405) IV ONE (10:30)
[2019-02-20] MEDS ORDERED: ISOVUE-370 76% 100ML VIAL (Q9967) As Ordered ONE (10:37)
--- NOTE | 2019-02-20 11:12 | REP ---
CT of the abdomen and pelvis with IV contrast, without bowel contrast, for right lower quadrant abdominal pain: Comparison is 01/17/2018. The patient has history of cholecystectomy and ectopic gestation. The visualized lung arroyo are unremarkable. There is a small hepatic right lobe cyst, unchanged. The hepatic parenchyma is otherwise unremarkable. The pancreas and spleen are normal size and unremarkable. The adrenals are unremarkable. The kidneys are unremarkable. The abdominal aorta is unremarkable. There is no bowel distension or obstruction. Mesentery is unremarkable. There is no mesenteric ascites or adenopathy. Pelvis: The uterus is unremarkable. There are follicles in each ovary. There is no dominant ovarian mass or cyst. There is no free fluid or adenopathy. The uterus is anteverted and unremarkable. The bladder is nondistended and cannot be further assessed. The appendix is unremarkable. Impression: Cholecystectomy. No hydronephrosis. Kidneys unremarkable. Uterus and adnexa are unremarkable. Appendix is unremarkable. No ascites or adenopathy. No bowel distension or obstruction. Electronically Signed by Shawn Cantu MD 02/20/2019 11:02 A
[2019-02-20] MEDS ORDERED: METOCLOPRAMIDE INJ 10MG/2ML VIAL (J2765) IV ONE (12:00)
--- NOTE | 2019-02-20 12:17 | REP ---
Pelvic ultrasound including transabdominal, endovaginal and Doppler ultrasound assessment for right lower quadrant pain: The uterus is anteverted and normal size measuring 7.4 x 3.5 x 5.2 cm. The myometrium is unremarkable. The endometrium is normal thickness measuring 3.5 mm. The ovaries are normal size. The right ovary measures 4.3 x 2.3 x 2.4 cm. The left ovary measures 4.3 x 2.5 x 2.1 cm. There are no dominant ovarian masses or cysts. There is vascular flow in both ovaries. The Doppler resistive index of the parenchymal arteries in the right ovary is 0.67 and left ovary is 0.70. There is no free fluid in the pelvis. The bladder is adequately distended. Impression: Essentially negative pelvic ultrasound. Electronically Signed by Shawn Cantu MD 02/20/2019 12:09 P
[2019-02-20] MEDS ORDERED: CIPR-249 PO (12:44)
[2019-02-20] MEDS ORDERED: ONDA4TAB6 PO (12:44)
[2019-02-20] MEDS ORDERED: PHEN-501 PO (12:44)
[2019-02-20 12:49] VITALS: BP 98/53
[2019-02-20] MEDS ORDERED: ACETAMINOPHEN 325 MG TAB PO ONE (13:00)
== END 2019-02-20 12:56 | disposition home or self-care (01) ==
LOC: M ED 08:46
DX: N39.0 Urinary tract infection, site not specified (principal)
CPT/HCPCS: 74177; 76830; 76856; 80048; 80076; 81001; 83690; 85025; 87086; 93976; 96361; 96374; 96375; 99284; J1885; J2405; J2765; Q9967

== ENCOUNTER → 2019-02-28 | Outpatient (REF) | payer OTHER ==
[~2019-02-28] MED LIST changes: +PHEN-501 PO; +otc prenatal vit
[2019-02-28 16:57] LABS: FOLATE 15.1 NG/ML
[2019-02-28 17:35] LABS: HCG, SERUM QUALITATIVE NEGATIVE (NEGATIVE)
[2019-02-28 18:41] LABS: HEMOGLOBIN A1c 5.2 %
== END ==
LOC: M SFHCLERA 12:35
PROVIDERS: ATTEND Family Medicine
DX: R73.9 Hyperglycemia, unspecified (principal); R53.83 Other fatigue; R11.2 Nausea with vomiting, unspecified
CPT/HCPCS: 82607; 82746; 83036; 84443; 84703; G0463

== ENCOUNTER → 2019-03-15 | Outpatient (REF) | payer OTHER ==
[2019-03-15 19:21] LABS: HCG, SERUM QUALITATIVE POSITIVE (NEGATIVE)
[2019-03-17 06:36] LABS: HCG, SERUM QUANTITATIVE 130 MIU/ML
== END ==
LOC: M SFHCLERA 11:39
PROVIDERS: ATTEND Family Medicine
DX: Z32.01 Encounter for pregnancy test, result positive (principal)
CPT/HCPCS: 81025; 84702; 84703; G0463

== ENCOUNTER → 2019-03-16 | Outpatient (REF) | payer OTHER | LOC: M SFHCLERA 07:46 | PROVIDERS: ATTEND Family Medicine | DX: Z32.01 Encounter for pregnancy test, result positive (principal) ==

== ENCOUNTER → 2019-03-19 | Outpatient (REF) | payer OTHER | LOC: M SFHCLERA 16:34 | PROVIDERS: ATTEND Family Medicine | DX: E34.9 Endocrine disorder, unspecified (principal) ==

== ENCOUNTER 2019-03-20 13:13 | Emergency (ER) | payer OTHER ==
[~2019-03-20] VITALS: Ht 149.9 cm; Wt 56.1 kg
[~2019-03-20 13:13] MED LIST changes: -otc prenatal vit
[2019-03-20] MEDS ORDERED: otc prenatal vit (13:23)
[2019-03-20 14:12] LABS: BASO % 0.2 % (0.0-1.0); EOS # 0.1 10^3/uL (0.0-0.50); EOS % 0.7 % (0.0-3.0); HEMATOCRIT 33.7 % (36.0-47.0); HEMOGLOBIN 11.2 g/dl (12.0-15.5); LYMPH % 19.4 % (24.0-44.0); MEAN CORPUSCULAR HEMOGLOBIN 30.1 pg (27.0-33.0); MEAN CORPUSCULAR HGB CONC 33.2 g/dl (32.0-36.5); MEAN CORPUSCULAR VOLUME 90.6 fl (80.0-96.0); MONO # 0.8 10^3/uL (0.0-0.8); MONO % 7.9 % (0.0-5.0); NEUTROPHILS # 7.4 10^3/uL (1.8-7.7); NEUTROPHILS % 71.6 % (36.0-66.0); PLATELET COUNT, AUTOMATED 232 10^3/uL (150-450); RED BLOOD COUNT 3.72 10^6/uL (4.00-5.40); WHITE BLOOD COUNT 10.3 10^3/uL (4.0-10.0)
[2019-03-20 14:39] LABS: BLOOD UREA NITROGEN 9 MG/DL (7-18); CARBON DIOXIDE LEVEL 26 MEQ/L (21-32); CHLORIDE LEVEL 109 MEQ/L (98-107); GLOMERULAR FILTRATION RATE > 60.0 (>60); GLUCOSE, FASTING 80 MG/DL (70-100); HCG, SERUM QUANTITATIVE 766 MIU/ML; POTASSIUM SERUM 3.9 MEQ/L (3.5-5.1); SODIUM LEVEL 141 MEQ/L (136-145)
--- NOTE | 2019-03-20 16:05 | REP ---
PELVIC ULTRASOUND: Real-time sonographic evaluation of the pelvis was performed utilizing transabdominal and endovaginal technique. The uterus measures 7.8 x 4.6 x 6.1 cm. Endometrial thickness is 17 mm. No gestational sac is seen in the endometrial canal with a beta HCG of 766. Right ovary measures 4.5 x 2.1 x 4.6 cm and left ovary 3.1 x 1.8 x 1.9 cm with no torsion of either ovary, RI right ovary 0.52 and left ovary 0.66. Simple cystic structure of the right ovary measures 2 cm. Another complex area in the right ovary measures 1.3 x 1.0 x 1.4 cm, possibly hemorrhagic. There is no adnexal mass. There is mild free fluid. Findings could indicate very early intrauterine , missed AB or ectopic . Suggest correlation with serial quantitive beta HCG values and followup ultrasound as necessary. Electronically Signed by Shawn Lemus MD 03/20/2019 08:16 P
[2019-03-20 16:13] VITALS: BP 104/55
[2019-03-20] MEDS ORDERED: MACR100C43 PO (16:38)
== END 2019-03-20 16:47 | disposition home or self-care (01) ==
LOC: M ED 13:13
DX: O20.0 Threatened abortion (principal); O23.41 Unspecified infection of urinary tract in pregnancy, first trimester; O99.351 Diseases of the nervous system complicating pregnancy, first trimester; G43.909 Migraine, unspecified, not intractable, without status migrainosus; Z3A.01 Less than 8 weeks gestation of pregnancy

== ENCOUNTER → 2019-03-22 | Outpatient (REF) | payer OTHER ==
[~2019-03-22] MED LIST changes: +otc prenatal vit
[2019-03-22 21:47] LABS: CHLAMYDIA DNA AMPLIFICATION NEGATIVE (NEGATIVE); GC DNA AMPLIFICATION NEGATIVE (NEGATIVE)
== END ==
LOC: M SFHCLERA 12:15
PROVIDERS: ATTEND Family Medicine
DX: N76.0 Acute vaginitis (principal)

== ENCOUNTER → 2019-03-22 | Outpatient (CLI) | payer OTHER | LOC: M LRY 12:19 | PROVIDERS: ATTEND Emergency Medicine | DX: O20.0 Threatened abortion (principal) ==

== ENCOUNTER → 2019-03-29 | Outpatient (CLI) | payer OTHER ==
--- NOTE | 2019-03-29 19:20 | REP ---
First trimester obstetric sonography: History: Supervision of . Findings: Transabdominal and transvaginal scanning are performed. A living intrauterine gestation is seen. Holbrook-rump length of the embryonic pole is 2 mm. This would correspond with a 1-xegz-3-day gestational age estimate. heart rate is documented at a slow rate of 86 beats per minute. There is a hypoechoic right ovarian corpus luteum 3.3 x 3.3 x 2.0 cm. Impression: Living intrauterine gestation at 5 weeks 5 days by crown-rump length. LILI by sonography November 24, 2019. Concern is raised however regarding apparent bradycardia, 86 beats per minute. Electronically Signed by Felipe Rai MD 03/29/2019 08:02 P
== END ==
LOC: M RAD 17:04
PROVIDERS: ATTEND Family Medicine
DX: Z32.01 Encounter for pregnancy test, result positive (principal); Z3A.01 Less than 8 weeks gestation of pregnancy

== ENCOUNTER → 2019-04-05 | Outpatient (CLI) | payer OTHER ==
--- NOTE | 2019-04-05 17:27 | REP ---
Clinical: Dating and viability. Technique: Transabdominal and transvaginal first trimester obstetrical ultrasound with color Doppler evaluation. Findings: Ultrasound examination demonstrates a single live intrauterine . Gestational sac with yolk sac and pole noted. CRL of 9 mm corresponds to 6 weeks 6 days gestational age with estimated date of delivery 11/23/2019. heart rate equals 119 beats per minute. No subchorionic hemorrhage is appreciated. The bilateral maternal ovaries are normal and a right corpus luteal cyst is identified measuring 2.7 x 1.6 x 2.5 cm. Impression: Single live early intrauterine at 6 weeks 6 days gestational age. Complete anatomical assessment should be performed at 19-20 weeks. Electronically Signed by Lauro Us MD 04/05/2019 05:19 P
== END ==
LOC: M RAD 16:32
PROVIDERS: ATTEND Family Medicine
DX: O36.8390 Maternal care for abnormalities of the fetal heart rate or rhythm, unspecified trimester, not applicable or unspecified (principal); Z3A.01 Less than 8 weeks gestation of pregnancy

== ENCOUNTER → 2019-04-18 | Outpatient (CLI) | payer OTHER ==
[~2019-04-18] MED LIST changes: +PYRI25TA2 PO; +UNIS25TA3 PO
[2019-04-18 13:28] LABS: BASO % 0.3 % (0.0-1.0); EOS % 0.4 % (0.0-3.0); HEMATOCRIT 36.4 % (36.0-47.0); HEMOGLOBIN 12.3 g/dl (12.0-15.5); LYMPH % 17.1 % (24.0-44.0); MEAN CORPUSCULAR HEMOGLOBIN 30.4 pg (27.0-33.0); MEAN CORPUSCULAR HGB CONC 33.8 g/dl (32.0-36.5); MEAN CORPUSCULAR VOLUME 89.9 fl (80.0-96.0); MONO % 8.6 % (0.0-5.0); NEUTROPHILS # 8.4 10^3/uL (1.8-7.7); NEUTROPHILS % 73.3 % (36.0-66.0); PLATELET COUNT, AUTOMATED 236 10^3/uL (150-450); RED BLOOD COUNT 4.05 10^6/uL (4.00-5.40); WHITE BLOOD COUNT 11.4 10^3/uL (4.0-10.0)
[2019-04-18 14:48] LABS: HEPATITIS C VIRUS ABY INDEX 0.1 INDEX (<0.8); HIV 1&2 SCREEN CENTAUR NEGATIVE (NEGATIVE); RUBELLA IgG QUALITATIVE IMMUNE (IMMUNE)
== END ==
LOC: M SMT 11:57
PROVIDERS: ATTEND Advanced Practice Midwife
DX: Z34.81 Encounter for supervision of other normal pregnancy, first trimester (principal); Z36.89 Encounter for other specified antenatal screening; Z3A.09 9 weeks gestation of pregnancy

== ENCOUNTER 2019-04-26 14:39 | Emergency (ER) | payer OTHER ==
[~2019-04-26] VITALS: Ht 149.9 cm; Wt 53.2 kg
[~2019-04-26 14:39] MED LIST changes: -PYRI25TA2 PO; -UNIS25TA3 PO
[2019-04-26] MEDS ORDERED: UNIS25TA3 PO (14:48)
[2019-04-26] MEDS ORDERED: PYRI25TA2 PO (14:48)
[2019-04-26] MEDS ORDERED: NS 1,000 ML IV ONE (16:30)
[2019-04-26] MEDS ORDERED: ONDANSETRON 4MG/2ML VIAL (J2405) IV ONE (16:45)
[2019-04-26 16:50] LABS: HEMATOCRIT 39.4 % (36.0-47.0); HEMOGLOBIN 13.3 g/dl (12.0-15.5); MEAN CORPUSCULAR HEMOGLOBIN 30.6 pg (27.0-33.0); MEAN CORPUSCULAR HGB CONC 33.8 g/dl (32.0-36.5); MEAN CORPUSCULAR VOLUME 90.6 fl (80.0-96.0); PLATELET COUNT, AUTOMATED 245 10^3/uL (150-450); RED BLOOD COUNT 4.35 10^6/uL (4.00-5.40); WHITE BLOOD COUNT 13.5 10^3/uL (4.0-10.0)
[2019-04-26 16:58] LABS: APPEARANCE, URINE CLEAR (CLEAR); BACTERIA, URINE AUTO 1+ (NEGATIVE); BILIRUBIN, URINE AUTO NEGATIVE (NEGATIVE); BLOOD, URINE BLOOD NEGATIVE (NEGATIVE); COLOR, URINE YELLOW (YELLOW); GLUCOSE, URINE (UA) AUTO NEGATIVE (NEGATIVE); KETONE, URINE AUTO 1+ mg/dL (NEGATIVE); LEUKOCYTE ESTERASE, URINE AUTO 1+ (NEGATIVE); MUCUS, URINE SMALL (NEGATIVE); NITRITE, URINE AUTO NEGATIVE (NEGATIVE); PROTEIN, URINE AUTO NEGATIVE (NEGATIVE); RBC, URINE AUTO 5 /HPF (0-3); SPECIFIC GRAVITY URINE AUTO 1.024 (1.002-1.035); SQUAMOUS EPITHELIAL CELL UR AU 3 /HPF (0-6); UROBILINOGEN, URINE AUTO 0.2 mg/dL (0.0-2.0); WBC, URINE AUTO 4 /HPF (0-3)
[2019-04-26 19:12] VITALS: BP 99/52
--- NOTE | 2019-04-26 19:58 | REPVR ---
EXAM: US First Trimester, Transabdominal and US Duplex Artery or Vein, Ovaries, Limited EXAM DATE/TIME: 04/26/2019 6:29 PM CLINICAL HISTORY: 24 years old, female; complicated by abdominal or pelvic pain; Generalized abdominal pain; First trimester; Gestational age or lmp: 9w6d; TECHNIQUE: Imaging protocol: Real-time transabdominal obstetrical ultrasound of the maternal pelvis and a first trimester , less than 14 weeks 0 days, with image documentation. Real-time duplex ultrasound scan of the arterial or venous flow of the ovaries with B-mode, color Doppler flow and spectral waveform analysis, limited Duplex. COMPARISON: Ultrasound OB 04/05/2019. The images have been requested. Data regarding the exam is provided on the judicial assistant's worksheet. FINDINGS: GESTATION: Gestation: A single intrauterine gestational sac. This contains a pole and yolk sac. Heart rate: A heart rate is 165 bpm. Placenta: Unremarkable. No subchorionic bleed. Amniotic fluid: Amniotic and chorionic fluid are normal for gestational age. BIOMETRY: Estimated gestational age: The crown-rump length is 2.96 cm corresponding to a gestational age of 9 weeks 6 days. Estimated due date: The LILI is 11/23/2019. The LILI according to the first ultrasound was 11/24/2019. Interval growth is concordant. MATERNAL: Uterus: Unremarkable. Cervix: The cervix is closed measuring greater than 3 cm in length. Right adnexa: The right ovary measures 1.9 x 2.6 x 1.7 cm. There is a 1.5 cm complex or hemorrhagic cyst, possibly a corpus luteum. Normal color and spectral Doppler flow. The arterial peak systolic velocity is 21 cm/s. Left adnexa: The left ovary measures 2.1 x 2.8 x 1.9 cm. There are small follicles. Normal color and spectral blood flow. The arterial peak systolic velocity is 17 cm/s. Intraperitoneal: No intraperitoneal free fluid. IMPRESSION: Single live intrauterine gestation, as above. No evidence of ovarian torsion. Electronically signed by: Nellie Maldonado On 04/26/2019 19:57:56 PM
== END 2019-04-26 19:45 | disposition home or self-care (01) ==
LOC: M ED 14:39
DX: O26.891 Other specified pregnancy related conditions, first trimester (principal); R10.2 Pelvic and perineal pain; O21.9 Vomiting of pregnancy, unspecified; Z3A.09 9 weeks gestation of pregnancy; Z87.891 Personal history of nicotine dependence
CPT/HCPCS: 76801; 80047; 81001; 84702; 85027; 87086; 93976; 96374; 99284; J2405

== ENCOUNTER 2019-04-28 12:39 | Emergency (ER) | payer OTHER ==
[~2019-04-28] VITALS: Ht 149.9 cm; Wt 54.9 kg
[~2019-04-28 12:39] MED LIST changes: +PYRI25TA2 PO; +UNIS25TA3 PO
[2019-04-28] MEDS ORDERED: NS 1,000 ML IV ONE (13:30)
[2019-04-28] MEDS ORDERED: ACETAMINOPHEN TAB 650MG DOSE (2X325MG) PO ONE (13:30)
[2019-04-28 13:54] LABS: BASO % 0.2 % (0.0-1.0); EOS # 0.1 10^3/uL (0.0-0.50); EOS % 0.6 % (0.0-3.0); HEMATOCRIT 32.7 % (36.0-47.0); LYMPH # 1.9 10^3/uL (1.5-6.5); LYMPH % 16.7 % (24.0-44.0); MEAN CORPUSCULAR HEMOGLOBIN 30.7 pg (27.0-33.0); MEAN CORPUSCULAR HGB CONC 34.3 g/dl (32.0-36.5); MEAN CORPUSCULAR VOLUME 89.6 fl (80.0-96.0); MONO % 8.2 % (0.0-5.0); NEUTROPHILS # 8.6 10^3/uL (1.8-7.7); PLATELET COUNT, AUTOMATED 209 10^3/uL (150-450); RED BLOOD COUNT 3.65 10^6/uL (4.00-5.40); WHITE BLOOD COUNT 11.7 10^3/uL (4.0-10.0)
[2019-04-28 13:57] LABS: HEMOGLOBIN 11.2 g/dl (12.0-15.5)
[2019-04-28 14:09] LABS: ALBUMIN 3.3 GM/DL (3.2-5.2); ALT/SGPT 15 U/L (12-78); BILIRUBIN,DIRECT < 0.1 MG/DL (0.0-0.2); BILIRUBIN,TOTAL 0.2 MG/DL (0.2-1.0); LIPASE 170 U/L (73-393); TOTAL PROTEIN 6.6 GM/DL (6.4-8.2)
--- NOTE | 2019-04-28 14:35 | REP ---
FIRST TRIMESTER ULTRASOUND: Real-time sonographic evaluation of the gravid uterus is performed. There is a single intrauterine gestation with an estimated gestational age of 10 weeks 2 days based on a crown-rump length of 33 mm. EDC 11/22/2019. heart rate 169 beats per minute. Cervix is closed and measures 3.1 cm in length. There is no subchorionic hemorrhage. Placenta is posterior and to the right with no previa. Complex right corpus luteum 1.3 cm in diameter is noted. There is no torsion. Electronically Signed by Shawn Lemus MD 04/29/2019 10:10 P
--- NOTE | 2019-04-28 14:38 | REP ---
ULTRASOUND RIGHT LOWER QUADRANT: Real-time sonographic evaluation of the right lower quadrant performed. The appendix could not be visualized. I cannot exclude appendicitis. Trace free fluid is seen in the right lower quadrant. IMPRESSION: Trace free fluid. Appendix could not be visualized. I cannot exclude appendicitis. Electronically Signed by Shawn Lemus MD 04/29/2019 10:13 P
[2019-04-28 14:59] LABS: CHLAMYDIA DNA AMPLIFICATION NEGATIVE (NEGATIVE); GC DNA AMPLIFICATION NEGATIVE (NEGATIVE)
[2019-04-28] MEDS ORDERED: ONDANSETRON 4MG/2ML VIAL (J2405) As Ordered ONE (15:26)
[2019-04-28] MEDS ORDERED: ONDANSETRON 4MG/2ML VIAL (J2405) IV ONE (15:45)
[2019-04-28 17:09] VITALS: BP 96/54
== END 2019-04-28 17:10 | disposition home or self-care (01) ==
LOC: M ED 14:12
DX: O26.891 Other specified pregnancy related conditions, first trimester (principal); Z87.440 Personal history of urinary (tract) infections; Z79.899 Other long term (current) drug therapy

== ENCOUNTER 2019-05-04 06:17 | Emergency (ER) | payer OTHER ==
[~2019-05-04] VITALS: Ht 149.9 cm; Wt 53.7 kg
[2019-05-04 06:44] LABS: BASO % 0.3 % (0.0-1.0); EOS # 0.1 10^3/uL (0.0-0.50); EOS % 0.5 % (0.0-3.0); HEMATOCRIT 35.1 % (36.0-47.0); LYMPH # 1.6 10^3/uL (1.5-6.5); LYMPH % 17.9 % (24.0-44.0); MEAN CORPUSCULAR HEMOGLOBIN 30.2 pg (27.0-33.0); MEAN CORPUSCULAR HGB CONC 34.2 g/dl (32.0-36.5); MEAN CORPUSCULAR VOLUME 88.4 fl (80.0-96.0); MONO # 0.8 10^3/uL (0.0-0.8); MONO % 8.8 % (0.0-5.0); NEUTROPHILS # 6.6 10^3/uL (1.8-7.7); NEUTROPHILS % 72.2 % (36.0-66.0); PLATELET COUNT, AUTOMATED 232 10^3/uL (150-450); RED BLOOD COUNT 3.97 10^6/uL (4.00-5.40); WHITE BLOOD COUNT 9.1 10^3/uL (4.0-10.0)
[2019-05-04 07:20] LABS: BLOOD UREA NITROGEN 6 MG/DL (7-18); CARBON DIOXIDE LEVEL 26 MEQ/L (21-32); CHLORIDE LEVEL 109 MEQ/L (98-107); CREATININE FOR GFR 0.64 MG/DL (0.55-1.30); GLOMERULAR FILTRATION RATE > 60.0 (>60); GLUCOSE, FASTING 84 MG/DL (70-100); HCG, SERUM QUANTITATIVE 174509 MIU/ML; POTASSIUM SERUM 3.7 MEQ/L (3.5-5.1); SODIUM LEVEL 141 MEQ/L (136-145)
[2019-05-04 07:57] VITALS: BP 113/74
[2019-05-04] MEDS ORDERED: ACET-841 PO (07:59)
[2019-05-04 10:05] LABS: CHLAMYDIA DNA AMPLIFICATION NEGATIVE (NEGATIVE); GC DNA AMPLIFICATION NEGATIVE (NEGATIVE)
--- NOTE | 2019-05-04 10:16 | REP ---
First trimester obstetric ultrasound for vaginal bleeding: Comparisons are 03/29/2019, 04/05/2019, 04/26/2019 and 04/28/2019. The study is performed with transabdominal and Doppler ultrasound assessment. There is again a single intrauterine gestation. The heart rate is 158 beats per minute. The pole with crown-rump length is 4.5 cm, corresponding to gestational age of 11 weeks 2 days/LILI is 11/21/2019. Gestational age by the first ultrasound is 10-week 6 days/LILI 11/24/2019. Gestational age by LMP is 11 weeks 6 days/LILI 11/17/2019. There is a small subchorionic hematoma measuring 19 x 5 x 9 mm. The the maternal adnexa and cul-de-sac are unremarkable. With color Doppler evaluation. There is vascular flow in both ovaries. Impression: There is a small subchorionic hematoma as described. There is a 81-woan-9-day viable intrauterine gestation. heart rate is 158 beats per minute. Electronically Signed by Shawn Cantu MD 05/04/2019 10:07 A
== END 2019-05-04 10:02 | disposition home or self-care (01) ==
LOC: M ED 06:17
DX: O20.0 Threatened abortion (principal); Z3A.11 11 weeks gestation of pregnancy

== ENCOUNTER → 2019-05-09 | Outpatient (REF) | payer OTHER ==
[~2019-05-09] MED LIST changes: +ACET-841 PO
[2019-05-09 16:04] LABS: CHLAMYDIA DNA AMPLIFICATION NEGATIVE (NEGATIVE); GC DNA AMPLIFICATION NEGATIVE (NEGATIVE)
== END ==
LOC: M LAB REF 12:50
PROVIDERS: ATTEND Advanced Practice Midwife
DX: Z34.81 Encounter for supervision of other normal pregnancy, first trimester (principal)

== ENCOUNTER → 2019-05-24 | Outpatient (CLI) | payer OTHER | LOC: M SMT 08:32 | PROVIDERS: ATTEND Advanced Practice Midwife | DX: Z13.79 Encounter for other screening for genetic and chromosomal anomalies (principal) ==

== ENCOUNTER → 2019-06-20 | Outpatient (CLI) | payer OTHER ==
--- NOTE | 2019-06-20 12:35 | REP ---
OB ULTRASOUND: Real-time sonographic evaluation of the gravid uterus performed. There is a single living intrauterine gestation with an estimated gestational with an estimated gestational age 17 weeks 4 days based on the first ultrasound with EDC 11/24/2019. Today's measurements indicate appropriate growth. Biometry and Growth: BPD 38 mm = 17 weeks 3 days, 45th percentile HC 144 mm = 17 weeks 4 days, 51st percentile AC 115 mm = 17 weeks 2 days, 42nd percentile FL 25 mm = 17 weeks 3 days, 45th percentile HC/AC ratio 1.25 within normal range. Estimated weight 193 grams 38th percentile. SEEN/GROSSLY UNREMARKABLE Lateral ventricles Yes Posterior fossa Yes Upper lip Yes Four-chamber heart Yes LVOT Yes RVOT Yes Stomach Yes Cord insertion Yes Three vessel cord Yes Kidneys No Bladder Yes Spine No Cervical length: Closed and measures 3.7 cm in length. heart rate: 147 beats per minute. position: Breech. Placenta: Anterior and grade 0 with no previa or abruption. Amniotic fluid: Within normal limits. Electronically Signed by Shawn Lemus MD 06/21/2019 09:26 A
== END ==
LOC: M RAD 11:04
PROVIDERS: ATTEND Advanced Practice Midwife
DX: Z36.89 Encounter for other specified antenatal screening (principal); Z3A.17 17 weeks gestation of pregnancy

== ENCOUNTER → 2019-07-18 | Outpatient (CLI) | payer OTHER ==
[~2019-07-18] MED LIST changes: -OMEP40CA2 PO; +OMEP40CA97 PO
--- NOTE | 2019-07-18 12:29 | REP ---
OB ULTRASOUND: Real-time sonographic evaluation of the gravid uterus is performed. There is a single intrauterine gestation with an estimated gestational age of 21 weeks. 4 days, EDC 11/24/2019. Today's measurements indicate appropriate growth, although head measurements are slightly lower than expected. Biometry and Growth: BPD 46 mm = 20 weeks 0 days, 8th percentile HC 179 mm = 20 weeks 3 days, 13th percentile AC 166 mm = 21 weeks 5 days, 51st percentile FL 36 mm = 21 weeks 3 days 47th percentile HC/AC ratio 1.08 within normal range. Estimated weight 420 grams 39th percentile. SEEN/GROSSLY UNREMARKABLE Lateral ventricles Yes Posterior fossa Yes Upper lip Yes Four-chamber heart Yes LVOT Yes RVOT Yes Stomach Yes Cord insertion Yes Three vessel cord Yes Kidneys Yes Bladder Yes Spine Yes Cervical length: Closed and measures 3.1 cm in length. heart rate: 152 beats per minute. position: breech. Placenta: Anterior and grade 0 with no previa or abruption. Amniotic fluid: Within normal limits. Electronically Signed by Shawn Lemus MD 07/18/2019 06:28 P
== END ==
LOC: M RAD 10:04
PROVIDERS: ATTEND Advanced Practice Midwife
DX: Z34.82 Encounter for supervision of other normal pregnancy, second trimester (principal)

== ENCOUNTER → 2019-08-20 | Outpatient (CLI) | payer OTHER ==
[2019-08-20 14:24] LABS: BASO % 0.2 % (0.0-1.0); EOS % 0.3 % (0.0-3.0); HEMATOCRIT 34.3 % (36.0-47.0); HEMOGLOBIN 10.9 g/dl (12.0-15.5); LYMPH # 1.6 10^3/uL (1.5-5.0); LYMPH % 12.7 % (24.0-44.0); MEAN CORPUSCULAR HEMOGLOBIN 31.1 pg (27.0-33.0); MEAN CORPUSCULAR HGB CONC 31.8 g/dl (32.0-36.5); MEAN CORPUSCULAR VOLUME 97.7 fl (80.0-96.0); MONO # 0.9 10^3/uL (0.0-0.8); MONO % 7.3 % (0.0-5.0); NEUTROPHILS # 9.7 10^3/uL (1.5-8.5); PLATELET COUNT, AUTOMATED 280 10^3/uL (150-450); RED BLOOD COUNT 3.51 10^6/uL (4.00-5.40); WHITE BLOOD COUNT 12.3 10^3/uL (4.0-10.0)
== END ==
LOC: M SMT 08:25
PROVIDERS: ATTEND Advanced Practice Midwife
DX: Z34.82 Encounter for supervision of other normal pregnancy, second trimester (principal); Z3A.00 Weeks of gestation of pregnancy not specified

== ENCOUNTER 2019-08-29 12:38 | Outpatient (CLI) | payer OTHER ==
[~2019-08-29] VITALS: Ht 149.9 cm; Wt 58.6 kg
[2019-08-29 13:00] VITALS: BP 129/77
[2019-08-29 14:09] VITALS: BP 111/71
--- NOTE | 2019-08-29 14:37 | IPN ---
DATE: 08/29/2019 Cammie is a 24-year-old 3, para 0-0-2-0, 28-4/7 weeks gestation, EDC of 11/17/2019 based on last menstrual period and confirmed by first trimester ultrasound. She presents to labor and deliver delivery today with report of clear and green-tinted discharge with a streak of blood through it noted last night and then again earlier in the day. She does report some occasional cramping. Denies heavy vaginal bleeding and denies leakage of fluid. The fetus has been active. Her care was initiated at [facility] in the first trimester. Her course complicated by a history of polycystic ovary syndrome (PCOS), subchorionic hemorrhage in this and two prior spontaneous miscarriages. OBSTETRIC HISTORY: August 2017, spontaneous miscarriage. October 2017 spontaneous miscarriage. OBSTETRIC LABS: A+, antibody screen negative, rubella immune, VDRL nonreactive. Urine culture no growth. Hepatitis B surface antigen negative, HIV negative. Hepatitis C antibody nonreactive. Gonorrhea and chlamydia negative. Panorama testing low risk for aneuploidy female fetus. Gestational diabetic screening negative at 102. PAST MEDICAL HISTORY: Polycystic ovarian syndrome. Hiatal hernia. PAST SURGICAL HISTORY: Laparoscopic cholecystectomy, tonsillectomy. FAMILY HISTORY: Hypertension, PCOS, diabetes. SOCIAL HISTORY: The patient is . She is a nonsmoker. She denies alcohol and drug use. She denies any history of sexually transmitted infections. Denies history of abuse physical, sexual and emotional. ALLERGIES: No known drug allergies. CURRENT MEDICATIONS: vitamins OBJECTIVE: Temperature 98.8. Pulse 110, respirations 16, BP is 129/77. She is alert and oriented times three. She is in no apparent distress. She is smiling and talkative. The heart rate is 130 and that is appropriate for gestational age. There is occasional contraction noted. Sterile speculum exam: No bleeding observed. Normal physiological discharge. Wet prep and LESVIA are negative. I did obtain a gonorrhea and chlamydia culture to be sent. Sterile vaginal exam fingertip and thick. ASSESSMENT: Uterine at 28-4/7s. heart rate is appropriate for gestational age. Normal vaginal physiological discharge. PLAN: Reviewed palliative measures related to vaginal discharge. I did review signs and symptoms of labor, active movement counts and danger signs. I reviewed access to care. I plan to discharge the patient home. She is to keep her next appointment as scheduled at [facility]. I did answer all of her questions and the patient is agreeable to discharge at this time.
[2019-08-29 16:21] LABS: CHLAMYDIA DNA AMPLIFICATION NEGATIVE (NEGATIVE); GC DNA AMPLIFICATION NEGATIVE (NEGATIVE)
== END 2019-08-29 14:25 | disposition home or self-care (01) ==
LOC: M LDO 12:38
PROVIDERS: ATTEND Advanced Practice Midwife
DX: O26.893 Other specified pregnancy related conditions, third trimester (principal); Z3A.28 28 weeks gestation of pregnancy; N89.8 Other specified noninflammatory disorders of vagina
CPT/HCPCS: 87491; 87591; G0378; G0463

== ENCOUNTER 2019-09-19 15:39 | Outpatient (CLI) | payer OTHER ==
[~2019-09-19] VITALS: Ht 149.9 cm; Wt 61.6 kg
[2019-09-19 15:59] VITALS: BP 113/76
[2019-09-19 16:41] VITALS: BP 106/67
[2019-09-19 16:49] LABS: HEMATOCRIT 28.6 % (36.0-47.0); HEMOGLOBIN 9.3 g/dl (12.0-15.5); MEAN CORPUSCULAR HEMOGLOBIN 29.6 pg (27.0-33.0); MEAN CORPUSCULAR HGB CONC 32.5 g/dl (32.0-36.5); MEAN CORPUSCULAR VOLUME 91.1 fl (80.0-96.0); PLATELET COUNT, AUTOMATED 272 10^3/uL (150-450); RED BLOOD COUNT 3.14 10^6/uL (4.00-5.40); WHITE BLOOD COUNT 11.8 10^3/uL (4.0-10.0)
[2019-09-19 17:09] LABS: INR 0.99; PROTHROMBIN TIME 12.8 SECONDS (11.8-14.0)
[2019-09-19 17:10] LABS: PARTIAL THROMBOPLASTIN TIME 26.2 SECONDS (25.0-38.4)
--- NOTE | 2019-09-19 17:40 | IPN ---
DATE: 09/19/2019 Jasmine is a 24-year-old 3, para 0-0-2-0 at 31-4/7 weeks gestation with an estimated date of confinement (EDC) of 11/17/2019 based on last menstrual period and confirmed by first-trimester ultrasound. She presents to labor and delivery today after falling on her buttocks rather hard at approximately 1430. She denies vaginal bleeding or leakage of fluid. She denies contractions. The fetus has been active. Her care was initiated at [facility] in the first trimester. course complicated by a history of polycystic ovarian syndrome and subchorionic hemorrhage early in the . OBSTETRICAL HISTORY: August 2017, spontaneous miscarriage. October 2017, spontaneous miscarriage. OBSTETRIC LABORATORIES: A positive, antibody screen negative, rubella immune, VDRL nonreactive. Urine culture no growth. Hepatitis B surface antigen negative, HIV negative. Hepatitis C antibody nonreactive. Gonorrhea and chlamydia negative. Panorama testing for aneuploidy low risk female fetus. Diabetic screening normal at 102. PAST MEDICAL HISTORY: 1. Hiatal hernia. 2. Polycystic ovarian syndrome. SURGERIES: 1. Tonsillectomy. 2. Cholecystectomy. FAMILY HISTORY: Hypertension, seizure, blood clots SOCIAL HISTORY: The patient is . She is a nonsmoker. She denies alcohol and drug use. No history of any sexually transmitted infections and no history of abuse, physical, sexual, or emotional. ALLERGIES: No known drug allergies. CURRENT MEDICATIONS: vitamin. OBJECTIVE: Temperature 97.8, pulse 87, respirations 18, blood pressure (BP) is 113/76. She is alert and oriented. She is in no apparent discomfort. She is smiling and talkative. heart rate is 145 with moderate variability and appropriate for gestational age. Sterile vaginal exam deferred. No pattern of contractions. ASSESSMENT: Intrauterine at 31-4/7. heart rate is appropriate for gestational age. PLAN: Complete blood count (CBC), PTT/TT, fibrinogen, and Kleihauer-Betke. Four hours of continuous monitoring. The plan will be to discharge the patient home with normal lab values and reassuring status for 4 hours. The patient and her partner have had all their questions answered and do agree with the plan.
[2019-09-19 18:01] VITALS: BP 105/63
[2019-09-19 20:02] VITALS: BP 110/65
[2019-10-11] MEDS ORDERED: PRENTAB9 PO (13:19)
[2019-10-11] MEDS ORDERED: OMEP40CA97 PO (13:19)
== END 2019-09-19 20:10 | disposition home or self-care (01) ==
LOC: M LDO 15:39
PROVIDERS: ATTEND Advanced Practice Midwife
DX: Z04.3 Encounter for examination and observation following other accident (principal); O99.89 Other specified diseases and conditions complicating pregnancy, childbirth and the puerperium; E28.2 Polycystic ovarian syndrome; Z3A.31 31 weeks gestation of pregnancy; Z87.59 Personal history of other complications of pregnancy, childbirth and the puerperium
CPT/HCPCS: 36415; 59025; 85027; 85384; 85460; 85610; 85730; 90471; 90715; G0378; G0463

== ENCOUNTER → 2019-10-11 | Outpatient (CLI) | payer OTHER ==
[~2019-10-11] VITALS: Ht 149.9 cm; Wt 63.5 kg
[~2019-10-11] MED LIST changes: +ACET-683 PO; +D5W/LR 1,000 ML IV ONE; +DICL500C PO; +DIFL150T PO; +IBUP80TA PO; +LACTATED RINGER'S 1000 ML IV STA; +LR 1,000 ML IV SCH; +MAPA500T2 PO; +MVI -ADULT INJECTION 10 ML VIAL IV ONE; +PRENTAB9 PO
[2019-10-11 10:39] VITALS: BP 110/71
[2019-10-11 12:18] LABS: HEMATOCRIT 35.6 % (36.0-47.0); HEMOGLOBIN 11.1 g/dl (12.0-15.5); MEAN CORPUSCULAR HEMOGLOBIN 28.2 pg (27.0-33.0); MEAN CORPUSCULAR HGB CONC 31.2 g/dl (32.0-36.5); MEAN CORPUSCULAR VOLUME 90.4 fl (80.0-96.0); PLATELET COUNT, AUTOMATED 296 10^3/uL (150-450); RED BLOOD COUNT 3.94 10^6/uL (4.00-5.40); WHITE BLOOD COUNT 13.9 10^3/uL (4.0-10.0)
[2019-10-11 12:46] LABS: ALBUMIN 3.2 GM/DL (3.2-5.2); ALT/SGPT 15 U/L (12-78); BILIRUBIN,TOTAL 0.4 MG/DL (0.2-1.0); BLOOD UREA NITROGEN 5 MG/DL (7-18); CALCIUM LEVEL 9.1 MG/DL (8.5-10.1); CARBON DIOXIDE LEVEL 22 MEQ/L (21-32); CHLORIDE LEVEL 107 MEQ/L (98-107); CREATININE FOR GFR 0.59 MG/DL (0.55-1.30); GLOMERULAR FILTRATION RATE > 60.0 (>60); GLUCOSE, FASTING 69 MG/DL (70-100); POTASSIUM SERUM 4.4 MEQ/L (3.5-5.1); SODIUM LEVEL 136 MEQ/L (136-145); TOTAL PROTEIN 7.2 GM/DL (6.4-8.2)
[2019-10-11 13:01] LABS: INFLUENZA A AMPLIFICATION NEGATIVE (NEGATIVE); INFLUENZA B AMPLIFICATION NEGATIVE (NEGATIVE)
[2019-10-11 13:22] VITALS: BP 120/73
[2019-10-11 14:52] VITALS: BP 121/67
--- NOTE | 2019-10-11 15:01 | IPN ---
DATE: 10/11/2019 24-year-old G3, P0-0-2-0 female at 34 and 5/7 weeks gestation presents with feeling dizzy and lightheaded for 1 day. She works at [employer] and felt like she was going to pass out. She has very little appetite. She has no fevers that she is aware of. She did not have any vomiting. She does not feel "quite right". OBJECTIVE: Blood pressure 123/73, pulse 88, afebrile. She appears pale and somewhat weak-appearing. Head and neck exam is normal. Lungs are clear. Heart is regular. Abdomen is nontender, . heart tones are category 1. Extremities nontender. Trace edema. ASSESSMENT: 24-year-old G3, P0 female at 34 and 5 with probable viral syndrome. PLAN: Check labs. Plan IV hydration. Once the patient has improvement in symptoms, she may be sent home for rest. She will only work for a couple of days in order to recover.
[2019-10-11 15:08] LABS: APPEARANCE, URINE CLOUDY (CLEAR); BACTERIA, URINE AUTO 2+ (NEGATIVE); BILIRUBIN, URINE AUTO NEGATIVE (NEGATIVE); BLOOD, URINE BLOOD NEGATIVE (NEGATIVE); COLOR, URINE YELLOW (YELLOW); GLUCOSE, URINE (UA) AUTO NEGATIVE (NEGATIVE); KETONE, URINE AUTO 1+ mg/dL (NEGATIVE); LEUKOCYTE ESTERASE, URINE AUTO 3+ (NEGATIVE); MUCUS, URINE SMALL (NEGATIVE); NITRITE, URINE AUTO NEGATIVE (NEGATIVE); PROTEIN, URINE AUTO NEGATIVE (NEGATIVE); RBC, URINE AUTO 4 /HPF (0-3); SPECIFIC GRAVITY URINE AUTO 1.006 (1.002-1.035); SQUAMOUS EPITHELIAL CELL UR AU 5 /HPF (0-6); UROBILINOGEN, URINE AUTO 0.2 mg/dL (0.0-2.0); WBC, URINE AUTO 85 /HPF (0-3)
== END ==
LOC: M LDO 10:35
PROVIDERS: ATTEND Specialist
DX: O26.893 Other specified pregnancy related conditions, third trimester (principal); R42 Dizziness and giddiness; Z3A.34 34 weeks gestation of pregnancy
CPT/HCPCS: 59025; 80053; 81001; 85027; 87502; G0378; G0463

== ENCOUNTER → 2019-10-18 | Outpatient (REF) | payer OTHER ==
[~2019-10-18] MED LIST changes: -ACET-683 PO; -D5W/LR 1,000 ML IV ONE; -DICL500C PO; -DIFL150T PO; -IBUP80TA PO; -LACTATED RINGER'S 1000 ML IV STA; -LR 1,000 ML IV SCH; -MAPA500T2 PO; -MVI -ADULT INJECTION 10 ML VIAL IV ONE
== END ==
LOC: M SFHCWAGY 16:54
PROVIDERS: ATTEND Advanced Practice Midwife
DX: Z36.85 Encounter for antenatal screening for Streptococcus B (principal)

== ENCOUNTER → 2019-10-23 | Outpatient (CLI) | payer OTHER ==
--- NOTE | 2019-10-24 04:26 | REP ---
Clinical: growth evaluation Comparison: 07/18/2019 . Findings: Examination demonstrates a single live intrauterine in cephalic presentation. motion is identified by technologist. Placenta is noted anterior and grade I I without evidence for placenta previa or abruption. Amniotic fluid volume is normal. Cervix measures 3.1 a centimeters in length and appears closed. No evidence for nuchal cord. Gestational age by LMP 36 weeks 3 days with LILI 11/17/2019 . Gestational age by first US 35 weeks 3 days with LILI 11/24/2019 . FHR equals 136 beats per minute. BPD 8.8 cm 35 weeks 4 days HC 31.0 cm 34 weeks 4 days AC 31.8 cm 35 weeks 5 days FL 6.7 cm 34 weeks 3 days HL 5.7 cm 33 weeks 0 days HC/AC ratio 0.97 Estimated weight 2633 grams ( 46 percentile). Amniotic fluid index: 10.5 cm Impression: Single live intrauterine in cephalic presentation demonstrating appropriate interval growth.
== END ==
LOC: M WHC 07:44
PROVIDERS: ATTEND Advanced Practice Midwife
DX: O26.843 Uterine size-date discrepancy, third trimester (principal); Z3A.36 36 weeks gestation of pregnancy

== ENCOUNTER 2019-10-29 14:33 | Outpatient (CLI) | payer OTHER ==
[~2019-10-29] VITALS: Ht 149.9 cm; Wt 66.8 kg
[~2019-10-29 14:33] MED LIST changes: -MAPA500T2 PO
[2019-10-29] MEDS ORDERED: MAPA500T2 PO (14:59)
[2019-10-29 15:02] VITALS: BP 117/71
[2019-10-29 16:48] VITALS: BP 116/75
--- NOTE | 2019-10-29 19:59 | IPNPDOC ---
Text Note Date of Service The patient was seen on 10/29/19. NOTE Subjective: Patient is a 24-year-old female who is a at 37.2 weeks gestation with an LILI of 11/17/19 based off LMP and consistent with her first trimester ultrasound. Her was complicated by a first trimester subchorionic hemorrhage that resolved and PCOS. She conceived spontaneously without medication. She presents to L&D with complaints of sharp pain that shoots into her cervix and pubic bone and is more painful when she has to urinate. She reports some abdominal tightening but isn't sure she is having contractions. She reports active movement. She denies leaking of fluid or vaginal bleeding. She reports having a small amount of bloody show last week at her appointment but states it hasn't happened since last week. She reports she was seen at urgent care today to check for a UTI and her urine dip was negative. She does not report the contractions she is currently having as being painful. She reports them as being abdominal tightening and some pubic bone pain. Medical history: hiatal hernia and PCOS Surgical history: tonsillectomy and cholecystectomy Family history: HTN and PCOS Social history: . Former smoker. Denies any history of alcohol abuse or drug use or abuse. No history of STD. Past pregnancies: 08/2017: SAB and 10/2017: SAB. Objective: VS: see below. FHR 120, moderate variability, positive accelerations, no decelerations. Contractions were every 3 to 6 minutes and have decreased to every 8 to 12 minutes. SVE 4/90/-1, soft, anterior, no show. No change after 4 hours. A+Ox3. Respiratory rate is regular with no use of accessory muscles. Abdomen gravid and soft to palpation. Contractions are mild to palpation. Tolerated a regular diet. Assessment: IUP at 37.2 weeks gestation, Category I FHR tracing, not in active labor Plan: Patient discharged to home with . Extensive education given on labor signs. She is to keep her appointment on 10/31/19. Reviewed access to care, kick count, labor signs, and danger signs to report. VS,Fishbone, I+O VS, Fishbone, I+O Vital Signs Date Time Temp Pulse Resp B/P (MAP) Pulse Ox O2 Delivery O2 Flow Rate FiO2 10/29/19 16:48 97.3 76 18 116/75 (89) LAMAR DELGADO CNM Oct 29, 2019 19:59
== END 2019-10-29 19:50 | disposition home or self-care (01) ==
LOC: M LDO 14:33
PROVIDERS: ATTEND Advanced Practice Midwife
DX: O26.893 Other specified pregnancy related conditions, third trimester (principal); Z3A.37 37 weeks gestation of pregnancy; R10.2 Pelvic and perineal pain
CPT/HCPCS: 59025; G0378; G0463

== ENCOUNTER → 2019-10-29 | Outpatient (REF) | payer OTHER ==
[~2019-10-29] MED LIST changes: +MAPA500T2 PO
[2019-10-29 22:58] LABS: CHLAMYDIA DNA AMPLIFICATION NEGATIVE (NEGATIVE); GC DNA AMPLIFICATION NEGATIVE (NEGATIVE)
== END ==
LOC: M SFHCLERA 12:53
PROVIDERS: ATTEND Nurse Practitioner Family
DX: R30.0 Dysuria (principal)
CPT/HCPCS: 81002; 87086; 87661; G0463

== ENCOUNTER → 2019-10-31 | Outpatient (REF) | payer OTHER ==
[~2019-10-31] MED LIST changes: +MAPA500T2 PO
== END ==
LOC: M SMT 12:56
PROVIDERS: ATTEND Advanced Practice Midwife
DX: R30.0 Dysuria (principal)

== ENCOUNTER 2019-11-01 05:35 | Outpatient (CLI) | payer OTHER ==
[~2019-11-01] VITALS: Ht 149.9 cm; Wt 67.0 kg
[2019-11-01 06:00] VITALS: BP 133/82
[2019-11-01] MEDS ORDERED: BUTORPHANOL 2 MG/ML INJ (J0595) IV ONE (07:30)
[2019-11-01] MEDS ORDERED: PROMETHAZINE INJ 25 MG/ML VIAL (J2550) IV ONE (07:30)
[2019-11-01] MEDS ORDERED: FAMOTIDINE 20 MG TAB PO ONE (07:30)
[2019-11-01] MEDS ORDERED: ONDANSETRON 4MG/2ML VIAL (J2405) IV ONE (07:30)
[2019-11-01] MEDS ORDERED: LR 1,000 ML IV SCH (07:30)
--- NOTE | 2019-11-01 07:51 | IPN ---
DATE: 11/01/2019 Cammie is a 24-year-old, 3, para 0-0-2-0. She is 37-5/7 weeks gestation. She comes to labor and delivery with report of pelvic pain throughout the night that has created difficulty for her to sleep and nausea and vomiting. She denies vaginal bleeding and leakage of fluid. The fetus has been active. Her care was initiated at [facility] in the first trimester. course has been uncomplicated. OBJECTIVE: Temperature 98, pulse 80, blood pressure (BP) is 133/82. heart rate is 145 with moderate variability, positive accelerations, no decelerations. There is an isolated contraction. On her sterile vaginal exam, she is 3-4 cm dilated, 50% effaced, -2 station, mid position. This exam is unchanged from previous exams in the office last week and earlier this week. ASSESSMENT: Uterine at 37-5/7 weeks. heart rate category. Not in active labor. Nausea and vomiting. PLAN: IV fluids with lactated Ringers at 125, antacid, and Zofran for nausea. We discussed therapeutic rest. The patient is agreeable to this. She and her have had their questions answered. I did review the inability to induce her at 37 and 5 weeks and reviewed palliative measures for the chronic pelvic discomfort and low back pain that she has been experiencing.
[2019-11-01 08:07] VITALS: BP 117/72
[2019-11-01 13:19] VITALS: BP 117/67
== END 2019-11-01 15:13 | disposition home or self-care (01) ==
LOC: M LDO 05:35
PROVIDERS: ATTEND Advanced Practice Midwife
DX: O26.893 Other specified pregnancy related conditions, third trimester (principal); R10.2 Pelvic and perineal pain; O21.9 Vomiting of pregnancy, unspecified; Z3A.37 37 weeks gestation of pregnancy
CPT/HCPCS: 59025; 96374; 96375; G0378; G0463; J0595; J2405

== ENCOUNTER 2019-11-02 13:28 | Outpatient (CLI) | payer OTHER ==
[~2019-11-02] VITALS: Ht 149.9 cm; Wt 68.4 kg
[2019-11-02 13:42] VITALS: BP 126/74
[2019-11-02 14:20] VITALS: BP 140/73
--- NOTE | 2019-11-02 14:26 | IPNPDOC ---
Text Note Date of Service The patient was seen on 11/02/19. NOTE Outpatient 24yo LILI 11/17/2019. Presents @ 37w6d with complaints of decreased FM today. Had prolonged monitoring yesterday for contractions and was found to be 3-4 cm, unchanged over many hours Cat I tracing today Irregular UC, 2-5 minutes apart SVE unchanged, 3-4cm/80/-3 Reviewed change in movement patterns at term. Reminded pt needs to pay close atten to movements. Reviewed increased signs of labor. Keep appt next week VS,Fishbone, I+O VS, Fishbone, I+O Vital Signs Date Time Temp Pulse Resp B/P (MAP) Pulse Ox O2 Delivery O2 Flow Rate FiO2 11/02/19 13:42 98.5 88 18 126/74 (91) Jimena Vance CNM Nov 02, 2019 14:26
== END 2019-11-02 14:23 | disposition home or self-care (01) ==
LOC: M LDO 13:28
PROVIDERS: ATTEND Advanced Practice Midwife
DX: O36.8130 Decreased fetal movements, third trimester, not applicable or unspecified (principal); Z3A.37 37 weeks gestation of pregnancy
CPT/HCPCS: 59025; G0378; G0463

== ENCOUNTER 2019-11-04 10:35 | Outpatient (CLI) | payer OTHER ==
[~2019-11-04] VITALS: Ht 149.9 cm; Wt 68.2 kg
[2019-11-04 10:47] VITALS: BP 124/82
[2019-11-04] MEDS ORDERED: LACTATED RINGER'S 1000 ML IV STA (11:19)
[2019-11-04] MEDS ORDERED: LR 1,000 ML IV SCH (11:19)
[2019-11-04] MEDS ORDERED: ONDANSETRON 4MG/2ML VIAL (J2405) IV PRN (11:30)
[2019-11-04 12:00] LABS: HEMATOCRIT 27.6 % (36.0-47.0); HEMOGLOBIN 8.6 g/dl (12.0-15.5); MEAN CORPUSCULAR HEMOGLOBIN 27.2 pg (27.0-33.0); MEAN CORPUSCULAR HGB CONC 31.2 g/dl (32.0-36.5); MEAN CORPUSCULAR VOLUME 87.3 fl (80.0-96.0); PLATELET COUNT, AUTOMATED 256 10^3/uL (150-450); RED BLOOD COUNT 3.16 10^6/uL (4.00-5.40); WHITE BLOOD COUNT 8.2 10^3/uL (4.0-10.0)
[2019-11-04] MEDS ORDERED: OMEPRAZOLE 20 MG CAP PO ONE (12:00)
[2019-11-04 12:33] LABS: ALBUMIN 2.6 GM/DL (3.2-5.2); ALT/SGPT 9 U/L (12-78); BILIRUBIN,TOTAL 0.4 MG/DL (0.2-1.0); BLOOD UREA NITROGEN 5 MG/DL (7-18); CALCIUM LEVEL 8.3 MG/DL (8.5-10.1); CARBON DIOXIDE LEVEL 25 MEQ/L (21-32); CHLORIDE LEVEL 105 MEQ/L (98-107); CREATININE FOR GFR 0.55 MG/DL (0.55-1.30); GLOMERULAR FILTRATION RATE > 60.0 (>60); GLUCOSE, FASTING 67 MG/DL (70-100); POTASSIUM SERUM 4.1 MEQ/L (3.5-5.1); SODIUM LEVEL 136 MEQ/L (136-145); TOTAL PROTEIN 5.7 GM/DL (6.4-8.2)
[2019-11-04 13:42] VITALS: BP 120/75
[2019-11-04] MEDS ORDERED: ONDA4TAB6 PO (14:21)
--- NOTE | 2019-11-05 19:31 | IPN ---
DATE: 11/04/2019 24-year-old 1, para 0 female at 38-1/7 weeks gestation presents with vomiting after eating or drinking for the last 24 hours. She has intermittent contractions but they have not increased in intensity. She denies diarrhea, but has some mildly loose stools. There were no sick contacts at home. OBJECTIVE: Blood pressure 124/74, pulse 75, afebrile. She is in no apparent distress. Head and Neck exam: Normal. Lungs: Clear. Heart: Regular rate and rhythm. Abdomen: Nontender, gravid. Contractions: Irregular, moderate. Sterile vaginal exam: 4 cm, 80%, -2 station, posterior, soft, vertex. Extremities: Nontender. ASSESSMENT: 24-year-old 1 at 38-1/7 weeks gestation with possible viral syndrome. Patient was given IV fluids. Labs were checked which revealed anemia, but otherwise normal . The patient felt better with IV Zofran as well as oral omeprazole. Patient made no cervical change. Consider induction at 39 weeks.
== END 2019-11-04 14:04 | disposition home or self-care (01) ==
LOC: M LDO 10:35
PROVIDERS: ATTEND Specialist
DX: O47.9 False labor, unspecified (principal); O99.013 Anemia complicating pregnancy, third trimester; Z3A.38 38 weeks gestation of pregnancy
CPT/HCPCS: 36415; 59025; 80053; 85027; 96361; 96374; G0378; G0463; J2405

== ENCOUNTER 2019-11-09 15:33 | Inpatient (IN) | payer OTHER ==
[2019-11-09] VITALS (27 sets, daily range): BP systolic 107–132; BP diastolic 55–84
[~2019-11-09] VITALS: Ht 149.9 cm; Wt 68.6 kg
[2019-11-09] MEDS ORDERED: LACTATED RINGER'S 1000 ML IV STA (15:47)
[2019-11-09 16:36] LABS: HEMATOCRIT 29.5 % (36.0-47.0); HEMOGLOBIN 9.1 g/dl (12.0-15.5); MEAN CORPUSCULAR HEMOGLOBIN 27.1 pg (27.0-33.0); MEAN CORPUSCULAR HGB CONC 30.8 g/dl (32.0-36.5); MEAN CORPUSCULAR VOLUME 87.8 fl (80.0-96.0); PLATELET COUNT, AUTOMATED 279 10^3/uL (150-450); RED BLOOD COUNT 3.36 10^6/uL (4.00-5.40); WHITE BLOOD COUNT 11.1 10^3/uL (4.0-10.0)
--- NOTE | 2019-11-09 17:46 | HPEPDOC ---
Obstetrical History & Physical General Date of Admission Nov 09, 2019 at 15:33 History of Present Illness painful and irregular uterine contractions Chief Complaint: Contractions, term, Active Labor Information Provided By: Patient Age: 24 : 3 Term: 0 Pre-term: 0 Abortions: 0 (SAB) Livin Care Care: Good Care Dating Final EDC: Nov 17, 2019 Final EDC by: LMP LMP: February 10, 2019 1st Trimester Date: Apr 05, 2019 EGA at Admission: 38.6 Antepartum Course Diagnos(e)s SIUP at 38.6 wk, active labor Height (inches): 59 Pre- weight (lbs.): 119 Admission Weight (lbs.): 151 Change in Weight (lbs.): 32 Past Medical History Past Obstetrical History : 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 Past Medical History Medical History PCOS, hiatal hernia Surgical History: Tonsilectomy, Other (cholecystectomy) Family History Significant Family History: Diabetes, Hypertension, Seizures, Other Family History PCOS; depression, DVTs; MR Social History Marital Status: Family situation: Spouse/partner home Psychosocial History: No pertinent psych hx * Smoker: former Smoker Alcohol: Denies Drugs: denies Imunizations Tdap status: current Allergies Coded Allergies: No Known Allergies (Unverified , 07/07/18) Medications Scheduled Omeprazole (Omeprazole) 40 Mg Capsule.dr, 40 MG PO DAILY No.137/Iron/Folic Acd ( Vitamin Tablet) 1 Each Tablet, 1 TAB PO DAILY Miscellaneous Medications Acetaminophen (Mapap) 500 Mg Tablet, 1,000 MG PO Physical Examination Physical Examination GENERAL: Alert and oriented times three. BREAST: . ABDOMEN: Gravid and non-tender to touch. FETUS: Is vertex (VTX) by sterile vaginal examination (SVE), fetus is vertex (VTX) by Carlos. HEART RATE: Regular rate and rhythm. LUNGS: Clear to auscultation (CTA). EXTREMITIES: No edema. No clonus. Deep tendon reflexes (DTRs) + 2. Laboratory Data 24H LABS Laboratory Tests 2 11/09/19 15:41: Serology Scanned Report Hepatitis B Testing 11/09/19 16:12: Nucleated Red Blood Cells % (auto) 0.0 CBC/BMP Laboratory Tests 11/09/19 16:12 Pertinent Laboratoy Data Blood Type: A+ RBC Antibody Screen: Negative HIV: Negative Hepatitis B: Negative Hepatitis C: Negative Rapid Plasma Reagin: Nonreactive Rubella: Immune Chlamydia/Gonorrhea: Negative Group B Streptococcus: Negative Glucose Tolerance Test: 102 Diag/Inter Therapy low risk NIPT normal female Anatomy Ultrasound Ultrasound Date: Jun 20, 2019 Placenta Location: Anterior Normal Anatomy: Yes Placenta Previa: No Estimated Weight (grams): 193 (38%) Other Ultrasounds 04/05/19-ED SIUP CRL 9mm 6.6wk; FHR 119 04/18/19-TAUS SIUP +FHR crl .37cm cw 9.0wk 05/04/19-SIUP FHR 158, CRL 4.c5cm 11.2wk, LILI 11/21/19 05/09/19-TAUS SIUP +FH 05/24/19-TAUS SIUP +FH +FM 06/20/1943-yelnjzq-QLPI EFW 193g (38%), XFA180, anterior placenta, EVA normal 07/18/19-f/u anatomy-SIUP, EFW 420g (39%). FHR 152 Steroid Therapy Steroid Therapy: No Vaginal Examination Dilation: 5 cm Effacement: 50% Station: -1 Cervical Consistency: Soft Cervical Position: Middle Presentation: Cephalic presentation Position: Vertex (occiput) Assessment Heart Rate (FHR): 120 Variability: Moderate Accelerations: Positive Decelerations: None Tocometer Contractions: Yes Frequency: irregular, every 1-3 min. Duration: greater than 60 seconds Strength: palpated as moderate Assessment/Plan Assessment Cammie Qureshi is a 24-year-old (G)3 para (P)0-0-2-0 at 38+6 weeks by LMP and confirmed by 6-week ultrasound. Presents to Labor and Delivery (L&D) in active labor. Care was established in the first trimester. LILI 11/17/2019. has been uncomplicated. Patient is A+ and GBS negative. Pre- weight was 119# and last weight was 151#. Patient was sent to labor and delivery after being evaluated in the office for painful uterine contractions. Patient reports positive movement, denies leakage of fluid or vaginal bleeding. Patient has had dilation of 3-4 cm since 10/29/2019 with latent labor symptoms. 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 Diet: regular. Group B Streptococcus (GBS) negative. Labs and intravenous (IV) per unit protocol. Counseled on Pitocin and induction of labor (IOL). Lactated Ringers (LR): Bolus 800 mL, then at 125 mL/hr. Anesthesia consult per patient request. Anticipate normal spontaneous delivery (). C-S as appropriate. Jimena Vance CNM Nov 09, 2019 17:46
[2019-11-09] MEDS ORDERED: FENTANYL 2MCG/ML ROPIVACAINE 0.2% IN 0.9% NACL 100ML IVBAG As Ordered ONE (18:05)
[2019-11-09] MEDS ORDERED: REFRIGERATOR IV KEYS XX PRN (18:45)
[2019-11-09] MEDS ORDERED: ONDANSETRON 4MG/2ML VIAL (J2405) IV PRN (18:45)
[2019-11-09] MEDS ORDERED: EPIDURAL/PCA KEYS XX PRN (18:45)
[2019-11-09] MEDS ORDERED: ePHEDrine SULFATE 25 MG/5 ML(5MG/ML) SYRINGE IV PRN (18:45)
[2019-11-09] MEDS ORDERED: EPIDURAL COMMENT XX SCH (18:45)
[2019-11-09] MEDS ORDERED: NALOXONE INJ 0.4 MG/1 ML VIAL (J2310) IV PRN (18:45)
[2019-11-09] MEDS ORDERED: diphenhydrAMINE INJ 50MG/ML VIAL (J1200) IV PRN (18:45)
[2019-11-09] MEDS ORDERED: LACTATED RINGER'S 1000 ML IV PRN (18:45)
[2019-11-09] MEDS ORDERED: FENTANYL/ROPIVACAINE/NACL BAG 100 ML EPIDURAL SCH (18:45)
--- NOTE | 2019-11-09 19:33 | IPNPDOC ---
Text Note Date of Service The patient was seen on 11/09/19. NOTE Subjective: Patient resting comfortably after epidural placement; denies pain. Patient reports positive movement, denies leakage of fluid or vaginal bleeding. Objective: SVE 5/90/-1, AROM small amount clear fluid. FHR 130 with moderate variability, accelerations present, intermittent variable decelerations resolved with repositioning and IV fluid bolus. Jany every 1 to 5 minutes, moderate to palpation. Assessment: Active labor. Pain managed with epidural. AROM. heart rate tracing category 1 with episodes of category 2. Plan: Continue routine labor care. Continue continuous monitoring. Patient placed on clear liquid diet. Morales catheter after epidural placement. Anticipate vaginal delivery. VS,Fishbone, I+O VS, Fishbone, I+O Laboratory Tests 11/09/19 16:12 Vital Signs Date Time Temp Pulse Resp B/P (MAP) Pulse Ox O2 Delivery O2 Flow Rate FiO2 11/09/19 18:34 80 11/09/19 18:30 125/75 (92) 11/09/19 15:45 98.4 18 98.4 Jimena Vance CNM Nov 09, 2019 19:33
[2019-11-09] MEDS ORDERED: OXYTOCIN DRIP 30 UNITS in IV 1 EA IV SCH (20:30)
[2019-11-10] VITALS (18 sets, daily range): BP systolic 109–141; BP diastolic 59–83
[2019-11-10] MEDS ORDERED: DOCUSATE SODIUM 100 MG CAP PO PRN (03:15)
[2019-11-10] MEDS ORDERED: MOM 30ML SUSPENSION UDC PO PRN (03:15)
[2019-11-10] MEDS ORDERED: ACETAMINOPHEN TAB 650MG DOSE (2X325MG) PO PRN (03:15)
[2019-11-10] MEDS ORDERED: DIBUCAINE 1% OINTMENT 30GM TOP PRN (03:15)
[2019-11-10] MEDS ORDERED: ANUSOL HC CREAM 30GM TOP PRN (03:15)
--- NOTE | 2019-11-10 03:27 | DNPDOC ---
[facility] Delivery Note Delivery Note DATE OF DELIVERY: 11/10/2019 at 0221 PREDELIVERY DIAGNOSIS: 39-0/7 weeks' gestation and labor. POST DELIVERY DIAGNOSIS: Delivered. PROCEDURE: Spontaneous vaginal delivery. PROVIDER: Sarah Rodgers, Student Nurse-Message And Delivery Service Pricer with Jimena Vance CNM ANESTHESIA: epidural. ESTIMATED BLOOD LOSS: 350 mL. FINDINGS: 6 pound 4 ounce (2840g) viable female , Score 9/9, no nuchal cord. Marginal cord insertion DELIVERY SUMMARY: Patient is a 24-year-old 3 now para 1-0-2-1 who was admitted to labor and delivery for active labor. She received an epidural for pain management. AROM of clear fluid and IV pitocin were used to augment labor. The patient progressed to fully dilated at 0012 and pushed to a living female in the OA position with restitution to LOT at 0221. The anterior shoulder delivered with ease and the corpus immediately followed. The baby was placed on the maternal abdomen, [id number] active and crying. The cord was clamped times 2 after pulsation ceased and cut by the FOB. The placenta delivered spontaneously and intact at 0233. A 3-vessel cord with marginal insertion was noted. Uterine hemostasis was achieved via massage and rapid infusion of IV Pitocin at 999ml/hr for 30units in 500ml of NS. Brisk bleeding resumed and 1000mcg misoprostol per rectum and fundal massage controlled further bleeding. Trailing membranes were noted and teased out. The vagina, cervix, and perineum were inspected and found to have first degree left sulcus laceration that was repaired with 3.0 Vicryl Rapid on . She also had a right vaginal abrasion that was not repaired due to good hemostasis. Patient plans to breastfeed. Both mom and baby are in stable condition. All counts of instruments and sponges are correct. They are naming the baby "Haven." Jimena Vance CNM Nov 10, 2019 03:27
[2019-11-10] MEDS ORDERED: MEASLES,MUMPS,RUBELLA VACCINE INJ (MMR-II) (90707) SC SCH (04:00)
[2019-11-10] MEDS ORDERED: miSOPROStol 200 MCG TAB (S0191) PR ONE (04:00)
[2019-11-10] MEDS ORDERED: RHOGAM 300 MCG (1500 IU) INJ (J2790) IM SCH (04:00)
[2019-11-10] MEDS: METHYLERGONOVINE MALEATE 0.2 MG TAB PO SCH ×4 (04:48→22:05)
[2019-11-10] MEDS: IBUPROFEN 800 MG TAB PO PRN (08:12)
[2019-11-10] MEDS: PRENATAL VITAMINS CHEWABLE TABLET PO SCH (08:12)
[2019-11-10] MEDS: ACETAMINOPHEN 500 MG TAB PO PRN ×2 (13:44→20:41)
[2019-11-10] MEDS: IBUPROFEN 600 MG TAB PO PRN (16:56)
[2019-11-10] MEDS ORDERED: METHYLERGONOVINE MALEATE 0.2 MG TAB PO PRN (22:01)
[2019-11-11] MEDS: IBUPROFEN 800 MG TAB PO PRN ×2 (03:52→12:37)
[2019-11-11 05:31] VITALS: BP 117/65
[2019-11-11] MEDS: PRENATAL VITAMINS CHEWABLE TABLET PO SCH (08:33)
[2019-11-11] MEDS ORDERED: INFLUENZA QUADRIVALENT PF VACCINE 0.5ML SYRINGE (90686) IM ONE (09:00)
[2019-11-11 17:51] VITALS: BP 112/74
[2019-11-11] MEDS: IBUPROFEN 600 MG TAB PO PRN (20:08)
[2019-11-12] MEDS: ACETAMINOPHEN 500 MG TAB PO PRN ×2 (01:53→12:38)
[2019-11-12 05:49] VITALS: BP_SYST 103; BP_SYST 114; BP_DIAS 61; BP_DIAS 65
[2019-11-12] MEDS ORDERED: IBUP80TA PO (06:28)
[2019-11-12] MEDS: PRENATAL VITAMINS CHEWABLE TABLET PO SCH (07:29)
[2019-11-12] MEDS: IBUPROFEN 800 MG TAB PO PRN (07:30)
== END 2019-11-12 15:25 | disposition home or self-care (01) | DRG 807 ==
LOC: M LDI 15:33 → M OBS 11-10 04:41
PROVIDERS: ADMIT Advanced Practice Midwife; ATTEND Advanced Practice Midwife
PROC: 10907ZC Drainage of Amniotic Fluid, Therapeutic from Products of Conception, Via Natural or Artificial Opening (ICD-10-PCS; 2019-11-09)
PROC: 10E0XZZ Delivery of Products of Conception, External Approach (ICD-10-PCS; principal; 2019-11-10)
PROC: 0HQ9XZZ Repair Perineum Skin, External Approach (ICD-10-PCS; 2019-11-10)
DX: O72.0 Third-stage hemorrhage (principal); Z37.0 Single live birth; Z3A.38 38 weeks gestation of pregnancy; O43.123 Velamentous insertion of umbilical cord, third trimester; O70.0 First degree perineal laceration during delivery

== ENCOUNTER 2019-11-16 11:47 | Emergency (ER) | payer OTHER ==
[~2019-11-16] VITALS: Ht 149.9 cm; Wt 60.4 kg
[~2019-11-16 11:47] MED LIST changes: +IBUP80TA PO
[2019-11-16] MEDS ORDERED: IBUP-1114 PO (11:57)
[2019-11-16] MEDS ORDERED: ACETAMINOPHEN 500 MG TAB PO ONE (12:30)
[2019-11-16] MEDS ORDERED: NS 1,000 ML IV ONE (12:30)
[2019-11-16 12:51] LABS: BASO % 0.1 % (0.0-1.0); HEMATOCRIT 33.7 % (36.0-47.0); LYMPH # 0.6 10^3/uL (1.5-5.0); LYMPH % 6.3 % (24.0-44.0); MEAN CORPUSCULAR HEMOGLOBIN 26.6 pg (27.0-33.0); MEAN CORPUSCULAR HGB CONC 29.7 g/dl (32.0-36.5); MEAN CORPUSCULAR VOLUME 89.6 fl (80.0-96.0); MONO # 0.5 10^3/uL (0.0-0.8); MONO % 5.1 % (0.0-5.0); NEUTROPHILS % 87.9 % (36.0-66.0); PLATELET COUNT, AUTOMATED 277 10^3/uL (150-450); RED BLOOD COUNT 3.76 10^6/uL (4.00-5.40); WHITE BLOOD COUNT 9.1 10^3/uL (4.0-10.0)
--- NOTE | 2019-11-16 13:12 | REP ---
Pelvic sonography: History: 6 days . Pelvic cramping, fevers. Rule out retained products of conception. Findings: Transabdominal scanning is performed. uterine enlargement is observed as expected. Uterus dimensions are 12.1 x 7.4 x 9.3 cm. Endometrial echo is 1.1 cm thick and centrally placed. There is no sonographic evidence to suggest retained products of conception. There is no free fluid in the cul-de-sac. Visualized bladder corbett are smooth. Normal ovaries are seen. Right ovarian dimensions of 3.9 x 2.3 x 3.0 cm. Left ovary measures 2.0 x 1.7 x 2.6 cm. Doppler flow is seen in both ovaries. Resistive indices are 0.37 on the right and 0.54 on the left. Impression: uterine enlargement. Otherwise unremarkable. No sonographic evidence of retained products of conception. Electronically Signed by Felipe Rai MD 11/16/2019 01:32 P
[2019-11-16 13:16] LABS: ALBUMIN 3.2 GM/DL (3.2-5.2); ALT/SGPT 26 U/L (12-78); BILIRUBIN,DIRECT 0.1 MG/DL (0.0-0.2); BILIRUBIN,TOTAL 0.4 MG/DL (0.2-1.0); BLOOD UREA NITROGEN 10 MG/DL (7-18); CALCIUM LEVEL 8.7 MG/DL (8.5-10.1); CARBON DIOXIDE LEVEL 22 MEQ/L (21-32); CHLORIDE LEVEL 109 MEQ/L (98-107); CREATININE FOR GFR 0.77 MG/DL (0.55-1.30); GLOMERULAR FILTRATION RATE > 60.0 (>60); GLUCOSE, FASTING 86 MG/DL (70-100); LIPASE 103 U/L (73-393); POTASSIUM SERUM 3.9 MEQ/L (3.5-5.1); SODIUM LEVEL 140 MEQ/L (136-145); TOTAL PROTEIN 7.3 GM/DL (6.4-8.2)
[2019-11-16 13:29] LABS: INFLUENZA A AMPLIFICATION NEGATIVE (NEGATIVE); INFLUENZA B AMPLIFICATION NEGATIVE (NEGATIVE)
--- NOTE | 2019-11-16 14:40 | REP ---
Chest x-ray: Three views. History: fever . Comparison study: No comparison . Findings: The lungs are well inflated and free of infiltrate. The pleural angles are sharp. The heart size is normal. Pulmonary vasculature is not increased. No significant bony abnormality is seen. Impression: Negative chest x-ray. Electronically Signed by Felipe Rai MD 11/16/2019 02:31 P
[2019-11-16] MEDS ORDERED: DICL500C PO (15:21)
[2019-11-16] MEDS ORDERED: DIFL150T PO (15:21)
--- NOTE | 2019-11-16 15:22 | IPNPDOC ---
Text Note Date of Service The patient was seen on 11/16/19. NOTE ER consult 24yo , 6 days post vaginal delivery. Presents to ED with one day hx of fever and malaise. Also reports diffuse body aches, vaginal discharge WBC 9.1, WNL Pelvic sono shows no evidence retained POC, normal changes Chest Xray clear Pt appears uncomfortable. Reports both and pumping. Breasts are firm, warm and tender. No distinct areas of redness noted Fundus firm, 4below Lochia scant, without unusual odor A: Mastitis P: Dicloxacillin 500mg QID x 2 wks Diflucan 150mg once. May repeat after treatment prn Discussed with pt to reduce pumping at this time. Only produce enough milk for to feed. May need to pump enough to soften breasts. Rest, hydrate. Tylenol/ibuprofen prn Keep visit. Call prn VS,Cady, I+O VS, Noemie, I+O Laboratory Tests 11/16/19 12:31 Vital Signs Date Time Temp Pulse Resp B/P (MAP) Pulse Ox O2 Delivery O2 Flow Rate FiO2 11/16/19 12:55 11/16/19 12:02 108 11/16/19 11:48 98.7 18 98 Room Air Jimena Vance CNM Nov 16, 2019 15:22
[2019-11-16] MEDS ORDERED: FLUCONAZOLE 50MG TABLET PO ONE (15:30)
[2019-11-16 16:42] VITALS: BP 105/64
== END 2019-11-16 16:46 | disposition home or self-care (01) ==
LOC: M ED 11:47
DX: N93.9 Abnormal uterine and vaginal bleeding, unspecified (principal); N61.0 Mastitis without abscess; R10.2 Pelvic and perineal pain; N89.9 Noninflammatory disorder of vagina, unspecified; R50.9 Fever, unspecified; M79.10 Myalgia, unspecified site; E28.2 Polycystic ovarian syndrome; K21.9 Gastro-esophageal reflux disease without esophagitis; Z87.440 Personal history of urinary (tract) infections

== ENCOUNTER 2019-12-08 11:53 | Emergency (ER) | payer OTHER ==
[~2019-12-08] VITALS: Ht 149.9 cm; Wt 56.0 kg
[~2019-12-08 11:53] MED LIST changes: +DICL500C PO; +DIFL150T PO
[2019-12-08] MEDS ORDERED: ACET-683 PO (12:08)
[2019-12-08] MEDS ORDERED: PRENTAB9 PO (12:08)
[2019-12-08] MEDS ORDERED: DICL500C PO (13:29)
[2019-12-08 13:41] VITALS: BP 105/60
== END 2019-12-08 13:47 | disposition home or self-care (01) ==
LOC: M ED 11:53
DX: N61.0 Mastitis without abscess (principal); E28.2 Polycystic ovarian syndrome; K21.9 Gastro-esophageal reflux disease without esophagitis; Z79.899 Other long term (current) drug therapy

== ENCOUNTER → 2019-12-14 | Outpatient (CLI) | payer OTHER ==
[~2019-12-14] MED LIST changes: +ACET-683 PO
--- NOTE | 2019-12-14 10:53 | REP ---
FOCUSED RIGHT BREAST ULTRASOUND: HISTORY: Acute mastitis on the right. Concern for underlying abscess. No comparison breast imaging. FINDINGS: In the area of pain and palpable lump is in the upper outer quadrant demonstrates heterogeneous fibroglandular background echotexture. There is no evidence of mass or abscess. No cyst is seen. IMPRESSION: BIRADS category 1 negative findings. Recommend clinical followup.
== END ==
LOC: M WHC 08:52
PROVIDERS: ATTEND Nurse Practitioner Family
DX: N61.0 Mastitis without abscess (principal)